=== PATIENT | female | born 1980 | race Caucasian/White ===

== ENCOUNTER 2016-11-08 18:29 | Emergency (ER) | payer BC ==
[~2016-11-08] VITALS: Ht 162.6 cm; Wt 61.7 kg
[~2016-11-08 18:29] MED LIST: PREN1TAB29 PO; VENL225T27 PO
[2016-11-08 18:32] VITALS: Ht 162.6 cm; Wt 61.7 kg
--- NOTE | 2016-11-08 19:22 | DIAGNOSTIC IMAGING REPORT ---
CHEST ONE VIEW PORTABLE CLINICAL HISTORY: Severe hypertension. COMPARISON STUDY: Chest radiograph and chest CT November 01, 2014. FINDINGS: Lung volumes are normal. There is no pneumothorax or pleural effusion. Cardiac size is normal. Mediastinal contours are normal. There is no evidence of pulmonary edema. IMPRESSION: No acute cardiopulmonary findings. Electronically signed by: Franki Chiang M.D. 11/08/2016 7:21 PM Dictated Date/Time: 11/08/2016 7:20 PM
[2016-11-08 19:37] LABS: COMPLETE YES; EOS % 0.2 %; HEMATOCRIT 39.1 % (37-47); LYMPH % 42.2 %; LYMPH ABS # 2.74 K/uL (1.2-3.4); MEAN CORPUSCULAR HEMOGLOBIN 28.9 pg (25-34); MEAN CORPUSCULAR HGB CONC 34.8 g/dl (32-36); MEAN PLATELET VOLUME 9.4 fL (7.4-10.4); MONO % 11.1 %; NEUT % 46.5 %; PLATELET COUNT 249 K/uL (130-400); RED BLOOD COUNT 4.71 M/uL (4.2-5.4); WHITE BLOOD COUNT 6.49 K/uL (4.8-10.8)
[2016-11-08 19:45] LABS: URINE APPEARANCE CLEAR (CLEAR); URINE BILIRUBIN NEG (NEG); URINE COLOR YELLOW; URINE NITRITE NEG (NEG); URINE SPECIFIC GRAVITY 1.006 (1.000-1.030); UROBILINOGEN NEG (NEG)
[2016-11-08 19:46] LABS: INR 0.9 (0.9-1.1); MANUAL MICROSCOPIC REQUIRED? NO; REVIEW REQ? NO
--- NOTE | 2016-11-08 19:52 | DIAGNOSTIC IMAGING REPORT ---
CT OF THE HEAD WITHOUT CONTRAST CLINICAL HISTORY: Severe hypertension. COMPARISON STUDY: No previous studies for comparison. CT DOSE: 537.48 mGy.cm TECHNIQUE: Helical axial images of the head were obtained without IV contrast. Automated exposure control was utilized for the study. FINDINGS: No acute intracranial hemorrhage, midline shift or mass effect is present. Brain volume is normal. Ventricular system is normal. Basilar cisterns are patent. No extra-axial collections are present. Bradley-white differentiation is maintained. There are no findings to suggest acute dural sinus thrombosis or acute territorial infarct. There are no significant calvarial abnormalities. IMPRESSION: No acute intracranial findings. Electronically signed by: Franki Chiang M.D. 11/08/2016 7:50 PM Dictated Date/Time: 11/08/2016 7:47 PM
[2016-11-08 20:02] LABS: BLOOD UREA NITROGEN 15 mg/dl (7-18); CREATININE 0.84 mg/dl (0.60-1.20); GLUCOSE 90 mg/dl (70-99)
[2016-11-08 20:03] LABS: ALT/SGPT 16 U/L (12-78); BUN/CREATININE RATIO 18.1 (10-20); CALCIUM 8.5 mg/dl (8.5-10.1); CARBON DIOXIDE 29 mmol/L (21-32); CHLORIDE 105 mmol/L (98-107); POTASSIUM 3.4 mmol/L (3.5-5.1); SODIUM 141 mmol/L (136-145)
[2016-11-08 20:13] LABS: ALKALINE PHOSPHATASE 75 U/L (45-117); AST/SGOT 15 U/L (15-37)
[2016-11-08] MEDS ORDERED: ACETAMINOPHEN 500 MG TAB PO STA (20:48)
[2016-11-08 21:13] VITALS: BP 162/109; PULSE 74; TEMP 37.2; O2SAT 99
--- NOTE | 2016-11-09 00:48 | EMERGENCY ROOM VISIT NOTE ---
History Report prepared by [place]: Champ Hansen Under the Supervision of: Dr. Paramjit Payne M.D. First contact with patient: 18:46 Chief Complaint: HYPERTENSION Stated Complaint: HIGH BP, HEADACHE, TINGLING FEELING- REFERRED KATARINA History of Present Illness The patient is a 36 year old female who presents to the Emergency Room with complaints of a persistent headache that began one day prior to arrival. The patient states that her headache was much more severe yesterday. She also notes some blurry vision yesterday that would only last for a few seconds. The patient is also concerned over some "tinging" sensations in her lips, face, and intermittently in her arms bilaterally. The patient states that she has experienced these symptoms before, but only when she misses a dose or two of her Effexor. She has experienced these tingling sensations for the past two days , but denies missing any recent dosages of her medications. Patient denies LOC, fevers, chills, diaphoresis, visual changes, neck pain, chest pain, breathing difficulties, nausea, vomiting, abdominal pain, back pain, melena, hematochezia , urinary symptoms, numbness, weakness, lymphadenopathy, rash, or other complaints. Source of History: patient Onset: One day [employer] Position: head Timing: other (Persistent) Associated Symptoms: No chills, No fevers Note: Tingling in lips, face, arms. Vision irregularities. Review of Systems See HPI for pertinent positives and negatives. A total of ten systems were reviewed and were otherwise negative. Past Medical & Surgical Medical Problems: (1) Dyspnea (2) Gestational hypertension w/o significant proteinuria in 3rd trimester (3) Mild preeclampsia (4) Nausea/vomiting in (5) Family History Cancer Diabetes mellitus Hypertension Social History Smoking Status: Never Smoker Alcohol Use: none Drug Use: none Marital Status: Housing Status: lives with family Occupation Status: employed Current/Historical Medications Scheduled Vit W/ Ferrous Fumara (), 1 TAB PO DAILY Venlafaxine Hcl (Venlafaxine Hcl Er), 125 MG PO DAILY Allergies Coded Allergies: No Known Allergies (Unverified , 11/08/16) Physical Exam Vital Signs Date Time Temp Pulse Resp B/P Pulse Ox O2 Delivery O2 Flow Rate FiO2 11/08/16 21:13 37.2 74 18 162/109 99 11/08/16 20:43 74 162/109 11/08/16 19:27 72 18 145/111 11/08/16 19:23 72 11/08/16 19:15 Room Air 11/08/16 19:15 Room Air 11/08/16 18:32 37.2 83 17 157/111 99 Room Air Physical Exam GENERAL: Awake, alert, well-appearing, in no distress HENT: Normocephalic, atraumatic. Oropharynx unremarkable. EYES: Normal conjunctiva. Sclera non-icteric.PEARRL NECK: Supple. No nuchal rigidity. FROM. No JVD. RESPIRATORY: Clear to auscultation. CARDIAC: Regular rate, normal rhythm. Extremities warm and well perfused. Pulses equal. ABDOMEN: Soft, non-distended. No tenderness to palpation. No rebound or guarding. No masses. RECTAL: Deferred. MUSCULOSKELETAL: Chest examination reveals no tenderness. The back is symmetrical on inspection without obvious abnormality. There is no CVA tenderness to palpation. No joint edema. LOWER EXTREMITIES: Calves are equal size bilaterally and non-tender. No edema. No discoloration. NEURO: Cranial nerves intact. Normal sensorium. No sensory or motor deficits noted. SKIN: No rash or jaundice noted. Medical Decision & Procedures ER Provider Diagnostic Interpretation: X ray results as stated below per my interpretation and radiologist interpretation. Other radiology results as stated below per my review and radiologist interpretation CHEST ONE VIEW PORTABLE CLINICAL HISTORY: Severe hypertension. COMPARISON STUDY: Chest radiograph and chest CT November 01, 2014. FINDINGS: Lung volumes are normal. There is no pneumothorax or pleural effusion. Cardiac size is normal. Mediastinal contours are normal. There is no evidence of pulmonary edema. IMPRESSION: No acute cardiopulmonary findings. Electronically signed by: Franki Chiang M.D. 11/08/2016 7:21 PM Dictated Date/Time: 11/08/2016 7:[address] OF THE HEAD WITHOUT CONTRAST CLINICAL HISTORY: Severe hypertension. COMPARISON STUDY: No previous studies for comparison. CT DOSE: 537.48 mGy.cm TECHNIQUE: Helical axial images of the head were obtained without IV contrast. Automated exposure control was utilized for the study. FINDINGS: No acute intracranial hemorrhage, midline shift or mass effect is present. Brain volume is normal. Ventricular system is normal. Basilar cisterns are patent. No extra-axial collections are present. Bradley-white differentiation is maintained. There are no findings to suggest acute dural sinus thrombosis or acute territorial infarct. There are no significant calvarial abnormalities. IMPRESSION: No acute intracranial findings. Electronically signed by: Franki Chiang M.D. 11/08/2016 7:50 PM Dictated Date/Time: 11/08/2016 7:47 PM Laboratory Results 11/08/16 19:20 Red Blood Count 4.71, Mean Corpuscular Volume 83.0, Mean Corpuscular Hemoglobin 28.9, Mean Corpuscular Hemoglobin Concent 34.8, Mean Platelet Volume 9.4, Neutrophils (%) (Auto) 46.5, Lymphocytes (%) (Auto) 42.2, Monocytes (%) (Auto) 11.1, Eosinophils (%) (Auto) 0.2, Basophils (%) (Auto) 0.0, Neutrophils # (Auto ) 3.02, Lymphocytes # (Auto) 2.74, Monocytes # (Auto) 0.72, Eosinophils # (Auto ) 0.01, Basophils # (Auto) 0.00 11/08/16 19:20 Test 11/08/16 19:20 White Blood Count 6.49 K/uL (4.8-10.8) Red Blood Count 4.71 M/uL (4.2-5.4) Hemoglobin 13.6 g/dL (12.0-16.0) Hematocrit 39.1 % (37-47) Mean Corpuscular Volume 83.0 fL (80-100) Mean Corpuscular Hemoglobin 28.9 pg (25-34) Mean Corpuscular Hemoglobin Concent 34.8 g/dl (32-36) Platelet Count 249 K/uL (130-400) Mean Platelet Volume 9.4 fL (7.4-10.4) Neutrophils (%) (Auto) 46.5 % Lymphocytes (%) (Auto) 42.2 % Monocytes (%) (Auto) 11.1 % Eosinophils (%) (Auto) 0.2 % Basophils (%) (Auto) 0.0 % Neutrophils # (Auto) 3.02 K/uL (1.4-6.5) Lymphocytes # (Auto) 2.74 K/uL (1.2-3.4) Monocytes # (Auto) 0.72 K/uL (0.11-0.59) Eosinophils # (Auto) 0.01 K/uL (0-0.5) Basophils # (Auto) 0.00 K/uL (0-0.2) RDW Standard Deviation 37.5 fL (36.4-46.3) RDW Coefficient of Variation 12.4 % (11.5-14.5) Immature Granulocyte % (Auto) 0.0 % Immature Granulocyte # (Auto) 0.00 K/uL (0.00-0.02) Prothrombin Time 10.0 SECONDS (9.0-12.0) Prothromb Time International Ratio 0.9 (0.9-1.1) Activated Partial Thromboplast Time 27.0 SECONDS (21.0-31.0) Partial Thromboplastin Ratio 1.0 Urine Color YELLOW Urine Appearance CLEAR (CLEAR) Urine pH 6.0 (4.5-7.5) Urine Specific Centre 1.006 (1.000-1.030) Urine Protein NEG (NEG) Urine Glucose (UA) NEG (NEG) Urine Ketones NEG (NEG) Urine Occult Blood 2+ (NEG) Urine Nitrite NEG (NEG) Urine Bilirubin NEG (NEG) Urine Urobilinogen NEG (NEG) Urine Leukocyte Esterase NEG (NEG) Urine WBC (Auto) 1-5 /hpf (0-5) Urine RBC (Auto) 0-4 /hpf (0-4) Urine Hyaline Casts (Auto) 0 /lpf (0-5) Urine Epithelial Cells (Auto) 10-20 /lpf (0-5) Urine Bacteria (Auto) NEG (NEG) Urine Test NEG (NEG) Anion Gap 7.0 mmol/L (3-11) Est Creatinine Clear Calc Drug Dose 78.5 ml/min Estimated GFR () 102.2 Estimated GFR (Non- 88.2 BUN/Creatinine Ratio 18.1 (10-20) Calcium Level 8.5 mg/dl (8.5-10.1) Total Bilirubin 0.2 mg/dl (0.2-1) Direct Bilirubin < 0.1 mg/dl (0-0.2) Aspartate Amino Transf (AST/SGOT) 15 U/L (15-37) Alanine Aminotransferase (ALT/SGPT) 16 U/L (12-78) Alkaline Phosphatase 75 U/L (45-117) Troponin I < 0.015 ng/ml (0-0.045) Total Protein 7.5 gm/dl (6.4-8.2) Albumin 3.6 gm/dl (3.4-5.0) Lipase 197 U/L (73-393) Thyroid Stimulating Hormone (TSH) 1.940 uIu/ml (0.300-4.500) Laboratory results reviewed by me Medications Administered Medications (Trade) Dose Ordered Sig/Keesha Route Start Time Stop Time Status Last Admin Dose Admin Acetaminophen (Tylenol Tab) 1,000 mg NOW STAT PO 11/08/16 20:48 11/08/16 20:50 DC 11/08/16 21:11 1,000 MG ECG Indication: other (numbness) Rate (beats per minute): 71 Rhythm: normal sinus Findings: no acute ischemic change, no ectopy ED Course 1853: The patient was evaluated in room C11. A complete history and physical exam was performed. 2038: I reevaluate the patient at this time, she is feeling well after her dosage of Tylenol. She does not want blood pressure medication at this time. She will follow up in her primary care clinic tomorrow. She will be discharged home. 2047: Ordered Tylenol 1000 mg PO. Medical Decision Prior records/ancillary studies reviewed regarding the history above. The patient has had similar blood pressure elevations prior to and during her delivery. Triage Nursing notes reviewed and agree them. The patient's history was concerning for hypertension. Differential diagnosis: Etiologies such as hypertensive urgency, hypertensive emergency, benign hypertension, cardiovascular pathology, pheochromocytoma, electrolyte abnormality, renal disease, endorgan damage, as well as others were entertained. Physical examination: As above. Nonfocal. ER treatment provided: Tylenol On reassessment the patient felt better. Diagnostic interpretation by me: The electrocardiogram was negative for pathologic change. The labs revealed an unremarkable CBC and chemistry panel. Urinalysis had LFTs unremarkable. Cardiac troponin negative. Imaging studies: Head CT and Chest x-ray as above. The patient has elevated blood pressure. She notes having tingling sensations in the past while being on Effexor. She has a nonfocal examination. Her blood pressures are elevated but not in the range to expect her to be experiencing these symptoms from. Clinically she looks well although is mildly anxious. She does not want to start blood pressure medication at that time and given the fact that she is asymptomatic at this moment I think that close outpatient follow-up is very reasonable. If she has any worsening symptoms or other problems develop she will come back to the emergency department. She will contact her primary physician's office tomorrow. By the evaluation outlined above emergent etiologies such as hypertensive emergency, pheochromocytoma, endorgan damage, cardiac ischemia, aortic dissection, pulmonary embolism, pneumonia, pneumothorax, infections, gastrointestinal, as well as others were deemed relatively unlikely. The patient informed about the findings as listed above. All questions were answered and she was pleased with the treatment. Return instructions were outlined and the patient was discharged in stable condition. Outpatient prescription management: none Referral: The patient was referred back to her primary care physician for follow-up for a recheck of the current condition. The chart was completed utilizing [employer] Speech voice recognition software. Grammatical errors, random word insertions, pronoun errors, and incomplete sentences are an occasional consequence of this system due to software limitations, ambient noise, and hardware issues. Any formal questions or concerns about the content, text, or information contained within the body of this dictation should be directly addressed to the physician for clarification. Impression Primary Impression: Hypertension Additional Impressions: Numbness Anxiety Scribe Attestation The scribe's documentation has been prepared under my direction and personally reviewed by me in its entirety. I confirm that the note above accurately reflects all work, treatment, procedures, and medical decision making performed by me. Departure Information Dispostion Home / Self-Care Referrals Laury Roblero, C.R.N.P. (PCP) Forms HOME CARE DOCUMENTATION FORM, IMPORTANT VISIT INFORMATION, WORK / SCHOOL INSTRUCTIONS Patient Instructions My [facility] Additional Instructions Follow-up with your primary clinic tomorrow to discuss your high blood pressure and symptoms. Discuss your use of the Effexor as this can affect your blood pressure. Tylenol: Take 1000 mg every 6 hours as needed for pain. Do not take more than 3000 mg in a 24 hour period. Return to the ER for headache, passing out, difficulty breathing, fevers, numbness, tingling, worsening of your condition, or as needed. Problem Qualifiers
== END 2016-11-08 21:18 | disposition home or self-care (01) ==
LOC: C.EDB 18:30 → C.EDC 21:18
DX: I10 Essential (primary) hypertension (principal); R20.0 Anesthesia of skin; F41.9 Anxiety disorder, unspecified; Z80.9 Family history of malignant neoplasm, unspecified; Z83.3 Family history of diabetes mellitus; Z82.49 Family history of ischemic heart disease and other diseases of the circulatory system

== ENCOUNTER → 2016-11-11 | Outpatient (CLI) | payer BC | END | disposition home or self-care (01) | LOC: C.PAPS 10:05 | PROVIDERS: ATTEND Physician Assistant | DX: Z01.419 Encounter for gynecological examination (general) (routine) without abnormal findings (principal); R87.615 Unsatisfactory cytologic smear of cervix ==

== ENCOUNTER → 2017-03-24 | Outpatient (CLI) | payer BC ==
--- NOTE | 2017-03-24 17:35 | DIAGNOSTIC IMAGING REPORT ---
RIGHT KNEE 1 OR 2 VIEWS ROUTINE HISTORY: 36 years-old Female M25.561 Knee pain, acute right-sided knee pain without trauma. COMPARISON: None available TECHNIQUE: Frontal and lateral views of the right knee FINDINGS: There is no acute fracture, dislocation, significant degenerative changes, intra-articular or radiopaque foreign body. There is a small joint effusion. There is minimal spurring of the superior pole patella. IMPRESSION: Small joint effusion without acute osseous abnormality or significant degenerative changes. The above report was generated using voice recognition software. It may contain grammatical, syntax or spelling errors. Electronically signed by: Walker Rossi M.D. 03/24/2017 5:34 PM Dictated Date/Time: 03/24/2017 5:33 PM
== END | disposition home or self-care (01) ==
LOC: C.RAD 17:22
PROVIDERS: ATTEND Physician Assistant Medical
DX: M25.561 Pain in right knee (principal); M25.461 Effusion, right knee

== ENCOUNTER → 2017-03-31 | Outpatient (CLI) | payer BC | END | disposition home or self-care (01) | LOC: C.PAPS 17:01 | PROVIDERS: ATTEND Obstetrics & Gynecology | DX: Z01.419 Encounter for gynecological examination (general) (routine) without abnormal findings (principal) ==

== ENCOUNTER → 2017-09-29 | Outpatient (CLI) | payer OTHER ==
[2017-09-29 13:20] LABS: FOLLICLE STIMULAT HORMONE 5.15 IU/L; LUTEINIZING HORMONE 5.62 IU/L
== END | disposition home or self-care (01) ==
LOC: C.LAB1850 12:10
PROVIDERS: ATTEND Specialist
DX: Z31.41 Encounter for fertility testing (principal)

== ENCOUNTER → 2017-10-07 | Outpatient (CLI) | payer OTHER ==
--- NOTE | 2017-10-07 10:10 | DIAGNOSTIC IMAGING REPORT ---
HYSTEROSALPINGOGRAM CLINICAL HISTORY: FALLOPIAN INSUFFLATION FOR FERTILITY TESTING Z31.41 COMPARISON STUDY: No previous studies for comparison. FINDINGS: 36 seconds of fluoroscopic time was utilized. 5 fluoroscopic spot images were obtained. The left fallopian tube filled in a normal fashion there was free spillage. There is a filling defect at the ostium of the right fallopian tube. The right fallopian tube was nonvisualized. IMPRESSION: 1. Free spillage on the left 2. Nonvisualization of the right fallopian tube Electronically signed by: Lenard Deluna M.D. 10/07/2017 10:09 AM Dictated Date/Time: 10/07/2017 10:06 AM
--- NOTE | 2017-10-07 11:00 | OPERATIVE REPORT ---
DATE OF OPERATION: 10/07/2017 PREPROCEDURE DIAGNOSIS: Infertility testing. POSTPROCEDURE DIAGNOSES: Same plus filling defect of right fallopian tube. INDICATIONS FOR PROCEDURE: The patient is a 37-year-old G4, P1-0-3-1, who is undergoing fertility workup with Vel Pompa, who was recommended to have a hystersalpingogram as part of her fertility workup. PROCEDURE: Hystersalpingogram. COMPLICATIONS: None. ESTIMATED BLOOD LOSS: Zero. FINDINGS: Free spillage of radiopaque dye from left fallopian tube. No visible spillage or visible right fallopian tube. Normal appearing uterine contour. DESCRIPTION OF PROCEDURE: The patient was seen in the x-ray department. All questions were answered. She has already started preprocedure doxycycline antibiotic prophylaxis. She was then positioned comfortably on the table in the dorsal lithotomy position. A speculum was placed. The cervix was visualized. It was swabbed with Betadine. The anterior aspect of the cervix was grasped with a single tooth tenaculum and the acorn uterine manipulator was placed into the cervix. Under fluoroscopic visualization, the radiopaque dye was injected through the cervix into the uterus and the above noted findings were seen. All instruments were then removed from the vagina. Excellent hemostasis was observed. The patient tolerated the procedure well. Postprocedure, I discussed the findings with the patient of a visibly patent left fallopian tube and no visible right fallopian tube or spillage from the right side. She will follow up with Vel Pompa for further planning and management. I attest to the content of the Intraoperative Record and any orders documented therein. Any exception s are noted below.
== END | disposition home or self-care (01) ==
LOC: C.RAD 09:20
PROVIDERS: ATTEND Obstetrics & Gynecology
DX: Z31.41 Encounter for fertility testing (principal)

== ENCOUNTER → 2017-10-07 | Outpatient (CLI) | payer OTHER ==
[2017-10-07 10:00] LABS: HEMATOCRIT 39.4 % (37-47); HEMOGLOBIN 13.9 g/dL (12.0-16.0); MEAN CELL VOLUME 87.6 fL (80-100); MEAN CORPUSCULAR HEMOGLOBIN 30.9 pg (25-34); MEAN CORPUSCULAR HGB CONC 35.3 g/dl (32-36); MEAN PLATELET VOLUME 10.1 fL (7.4-10.4); PLATELET COUNT 240 K/uL (130-400); RED CELL DISTRIBUTION WIDTH CV 12.1 % (11.5-14.5); RED CELL DISTRIBUTION WIDTH SD 38.7 fL (36.4-46.3); WHITE BLOOD COUNT 4.39 K/uL (4.8-10.8)
[2017-10-07 10:18] LABS: ALBUMIN 3.9 gm/dl (3.4-5.0); ALT/SGPT 20 U/L (12-78); BLOOD UREA NITROGEN 12 mg/dl (7-18); GLUCOSE 74 mg/dl (70-99)
[2017-10-07 10:21] LABS: ALKALINE PHOSPHATASE 54 U/L (45-117); AST/SGOT 16 U/L (15-37); TOTAL PROTEIN 7.3 gm/dl (6.4-8.2)
[2017-10-07 10:27] LABS: PROLACTIN 4.32 ng/mL
[2017-10-07 11:06] LABS: HEP C IGG 13 YRS+OLDER_RFLX NEG (NEG)
[2017-10-07 12:13] LABS: HEMOGLOBIN A1C 4.8 % (4.5-5.6)
[2017-10-12 02:16] LABS: ANTICARDIOLIPID AB IGA <11 APL (< = 11); TESTOSTERONE,TOTAL 38 ng/dL (2-45)
== END | disposition home or self-care (01) ==
LOC: C.LAB1850 08:31
PROVIDERS: ATTEND Specialist
DX: Z31.41 Encounter for fertility testing (principal); Z01.83 Encounter for blood typing; Z11.59 Encounter for screening for other viral diseases; E28.2 Polycystic ovarian syndrome; Z13.21 Encounter for screening for nutritional disorder; Z11.3 Encounter for screening for infections with a predominantly sexual mode of transmission; Z11.4 Encounter for screening for human immunodeficiency virus [HIV]

== ENCOUNTER → 2017-10-27 | Outpatient (CLI) | payer OTHER | END | disposition home or self-care (01) | LOC: C.LAB1850 16:21 | PROVIDERS: ATTEND Nurse Practitioner | DX: R39.9 Unspecified symptoms and signs involving the genitourinary system (principal) ==

== ENCOUNTER → 2017-11-02 | Outpatient (CLI) | payer OTHER ==
[2017-11-02 10:13] LABS: BASO % 0.5 %; BASO ABS # 0.03 K/uL (0-0.2); EOS % 6.5 %; EOS ABS # 0.41 K/uL (0-0.5); HEMATOCRIT 39.7 % (37-47); HEMOGLOBIN 13.8 g/dL (12.0-16.0); IG# 0.01 K/uL (0.00-0.02); LYMPH % 34.7 %; LYMPH ABS # 2.18 K/uL (1.2-3.4); MEAN CELL VOLUME 87.8 fL (80-100); MEAN CORPUSCULAR HEMOGLOBIN 30.5 pg (25-34); MEAN CORPUSCULAR HGB CONC 34.8 g/dl (32-36); MEAN PLATELET VOLUME 9.9 fL (7.4-10.4); MONO % 11.9 %; MONO ABS # 0.75 K/uL (0.11-0.59); NEUT % 46.2 %; NEUT ABS # 2.91 K/uL (1.4-6.5); PLATELET COUNT 236 K/uL (130-400); RED CELL DISTRIBUTION WIDTH CV 12.1 % (11.5-14.5); RED CELL DISTRIBUTION WIDTH SD 38.9 fL (36.4-46.3); WHITE BLOOD COUNT 6.29 K/uL (4.8-10.8)
== END | disposition home or self-care (01) ==
LOC: C.LAB1850 09:07
PROVIDERS: ATTEND Specialist
DX: Z13.0 Encounter for screening for diseases of the blood and blood-forming organs and certain disorders involving the immune mechanism (principal)

== ENCOUNTER → 2017-11-09 | Outpatient (CLI) | payer OTHER ==
--- NOTE | 2017-11-09 09:20 | DIAGNOSTIC IMAGING REPORT ---
KUB CLINICAL HISTORY: Dysuria. FINDINGS: 2 AP supine abdominal radiographs are correlated with abdominal ultrasound dated 11/11/2014. There is a nonobstructed abdominal bowel gas pattern. No evidence of intraperitoneal free air is seen. There is no radiographic evidence of nephrolithiasis. Phleboliths are identified in the pelvis. The bony structures appear intact. IMPRESSION: There is no radiographic evidence of nephrolithiasis. Electronically signed by: Óscar Patel M.D. 11/09/2017 9:18 AM Dictated Date/Time: 11/09/2017 9:18 AM
== END | disposition home or self-care (01) ==
LOC: C.RAD1850 09:02
PROVIDERS: ATTEND Nurse Practitioner
DX: R39.9 Unspecified symptoms and signs involving the genitourinary system (principal)

== ENCOUNTER → 2017-11-12 | Outpatient (CLI) | payer OTHER ==
--- NOTE | 2017-11-12 14:26 | DIAGNOSTIC IMAGING REPORT ---
(RENAL)RETROPERITON COMP HISTORY: Pain R39.9 Urinary symptom or signu/s bladder with post void residual COMPARISON: None. FINDINGS: Right kidney: Maximum dimension 11.2 cm. No evidence for hydronephrosis. Normal corticomedullary differentiation and cortical thickness. Left kidney: Maximum dimension 10.6 cm. No evidence for hydronephrosis. Normal corticomedullary differentiation and cortical thickness. Bladder: Prevoid bladder volume 530 cc. Postvoid 28 cc. IMPRESSION: 1. Normal renal ultrasound. 2. Prevoid bladder volume 530 cc. Postvoid 28 cc. The above report was generated using voice recognition software. It may contain grammatical, syntax or spelling errors. Electronically signed by: Erick Stephens M.D. 11/12/2017 2:25 PM Dictated Date/Time: 11/12/2017 2:23 PM
== END | disposition home or self-care (01) ==
LOC: C.ULTR 13:34
PROVIDERS: ATTEND Family Medicine Adult Medicine
DX: R39.9 Unspecified symptoms and signs involving the genitourinary system (principal)

== ENCOUNTER → 2017-12-09 | Outpatient (CLI) | payer OTHER | END | disposition home or self-care (01) | LOC: C.LABBFT 09:55 | PROVIDERS: ATTEND Physician Assistant Medical | DX: R39.9 Unspecified symptoms and signs involving the genitourinary system (principal) ==

== ENCOUNTER → 2018-01-06 | Outpatient (CLI) | payer OTHER | END | disposition home or self-care (01) | LOC: C.LABBFT 11:01 | PROVIDERS: ATTEND Specialist | DX: Z32.00 Encounter for pregnancy test, result unknown (principal) ==

== ENCOUNTER → 2018-03-29 | Outpatient (CLI) | payer OTHER | END | disposition home or self-care (01) | LOC: C.LAB1850 10:49 | PROVIDERS: ATTEND Obstetrics & Gynecology | DX: R39.15 Urgency of urination (principal) ==

== ENCOUNTER → 2018-03-31 | Outpatient (CLI) | payer OTHER | END | disposition home or self-care (01) | LOC: C.LAB1850 09:31 | PROVIDERS: ATTEND Obstetrics & Gynecology | DX: O09.522 Supervision of elderly multigravida, second trimester (principal) ==

== ENCOUNTER 2018-09-12 07:29 | Inpatient (IN) ==
[2018-09-12] MEDS ORDERED: LACTATED RINGER'S 1,000 ML IV PRN ×4 (08:19→17:27)
[2018-09-12] MEDS ORDERED: OXYTOCIN 30 UNITS/500 ML BAG IV PRN ×3 (08:19→08:25)
[2018-09-12] MEDS ORDERED: LACTATED RINGER'S 1,000 ML IV SCH (08:30)
--- NOTE | 2018-09-12 09:03 | History & Physical Report ---
Date of Service September 12, 2018 Assessment & Plan (1) Encounter for planned induction of labor: Kenya is a 38yo with YUNG by US of 09/12/2018 who presents for induction of labor. She has not had a lazaro balloon placed prior to admission. is complicated by AMA (age 38), otherwise uncomplicated. She is blood type B+, rubella immune, Ab-, VDRL/RPR nonreactive, Hep B negative, HIV-, GBS negative - Last office check 09/09: 2-3cm/60%/-2 - Type I heart tracing - Admit for induction of labor - IVFM LR 125cc/hr - Oxytocin protocol 1mL/hr (0.06 units/mL) with 2cc dose escalation protocol - Routine care (2) with maternal age 40 years or more in third trimester: History of Present Illness Chief Complaint: Kenya is a 38yo with YUNG by US of 09/12/2018 who presents for induction of labor. She has not had a lazaro balloon placed prior to admission. She has had no leakage of fluid, no vaginal bleeding. She has felt some occasional contractions, none with any sustained periodicity and lasting <a few minutes. She is still feeling the baby move/roll. is complicated by AMA (age 38), no other complications during this . She is blood type B+, rubella immune, Ab-, VDRL/RPR nonreactive, Hep B negative , HIV-, GBS negative. Declined MSAFP. Cell free DNA negative. She has had one prior delivered 3 weeks early by induction due to preeclampsia. Her delivery was uncomplicated. She briefly took metoprolol after her first , but stopped ~3 years ago well prior to her current . Her blood pressure has been normal since and had been under good control without antihypertensives this . She has a PMHx of asthmna, anxiety/depression and PCOS. She was diagnosed with PCOS based on difficulty conceiving, she had an ultrasound many years ago which she thinks was negative. She has never been treated with spironolactone. She has no history of diabetes of impaired glucose tolerance. Was treated with Effexor for anxiety during last . She did not have any post depression with her last . Effexor was discussed with her at 16 & 24 weeks, but she has not taken any doses during her current . She was last on it over one year ago. Feels she does well with therapy and it is effective for her. Vaccinations: She recieved TDaP, MMR, Influenza vaccinations Medcation: She takes aspirin 81mg daily, fish oil daily, and a vitamin daily. No other medications. SHx: [place] teeth removed, neck cyst removed. No hx of c/s. Social: No tobacco use, no alcohol use, no recreational drug use Allergies: NKDA. Some season allergies. Primary Care Provider: July Gurrola MD Allergies Allergy/AdvReac Type Severity Reaction Status Date / Time No Known Allergies Allergy Unverified 11/08/16 20:00 Home Medications Home Medications Medication Instructions Recorded Confirmed Type aspirin 81 mg PO DAILY 09/12/18 09/12/18 History vit-iron fum-folic ac 1 tab PO DAILY 09/12/18 09/12/18 History [ Vitamin] Patient History Medical History Asthma Depression with anxiety demise 09/19/2013 14.3 weeks requiring d and e, MaterniT 21- 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 Normal spontaneous vaginal delivery 01/28/15 37.3 weeks, female Polycystic ovarian disease Spontaneous 02/2014 6 weeks Spontaneous 04/24/2013 4 weeks [place] teeth removed age 17 Surgical History History of removal of neck cyst Family History Grandmother (Maternal) Colon cancer Grandfather (Maternal) Diabetes Grandfather (Maternal) Congestive heart failure Grandfather (Paternal) Congenital heart defect Heart attack High cholesterol Brother Hypertension Mother Hypertension Aunt Breast cancer Social History marital status: Current Living Situation: Family Feels Safe at Home: Yes Smoking Status: Never smoker Hx Alcohol Use: Yes Alcohol type: wine Alcohol Intake Frequency: holidays/ special occasions only Hx Substance Use: No Beliefs That Will Affect Care: None Preferred Language: Malay Communication Ability: Effective Review of Systems Constitutional: no fever, no chills, no sweats, no body aches and no weakness Eyes: no blind spots, no diplopia, no spots in vision and no worsening vision Ear, Nose, Mouth, Throat: no ear pain, no ear discharge, no dizziness, no nasal congestion, no nasal discharge, no sinus pain/pressure and no sore throat Respiratory: + cough (dry cough at night with dry air); no chest congestion, no dyspnea, no dyspnea on exertion, no pain with cough, no sputum production and no wheezing Cardiovascular: no chest pain, no chest pain at rest, no chest pain with activity, no dyspnea, no dyspnea at rest, no dyspnea on exertion, no palpitations, no lightheadedness, no syncope and no edema Gastrointestinal: no abdominal pain, no nausea, no vomiting, no change in bowel habits and no melena Genitourinary (Female): no dysuria, no difficulty urinating, no flank pain and no abnormal vaginal bleeding Musculoskeletal: no joint pain and no muscle weakness Integumentary: no rash, no lesions and no new lesions Neurologic: no generalized weakness, no loss of sensation, no tingling and no numbness Psychiatric: + anxiety (Endorses some anxiety with blood draw this AM, a little sad she has to be induced); no depression Physical Exam 2 Vital Signs (Past 24 Hours): Last Vital Signs Temp 36.7 C 09/12/18 08:19 Pulse 79 09/12/18 08:26 Resp 20 09/12/18 08:19 BP 119/81 09/12/18 08:26 Constitutional: well developed, well nourished, cooperative and comfortable; no acute distress, not ill appearing, not intoxicated appearing and no altered mental status Eyes: PERRL, conjunctivae normal, anicteric sclerae EOM intact bilaterally ENMT: external ear and nose normal, oropharynx normal Neck: trachea midline, no thyromegaly Respiratory: normal respiratory effort, lungs clear to auscultation Cardiovascular: Rate/Rhythm: regular rate and regular rhythm Heart Sounds: normal S1, normal S2 and + murmur (soft midsystolic murmur appreciated at ULSB) ; no gallop Gastrointestinal (Abdomen): normal bowel sounds, soft, nontender, no hepatosplenomegaly Inspection/Auscultation: + abdomen distended (distension consistent with ) Dilip's: Cephalic presentation, back to pt's right. Musculoskeletal: no cyanosis or clubbing, extremities motor strength 5/5 Skin: no rashes, warm and dry Neurologic: patellar DTR's 2+ bilat, sensation intact and PERRL, EOMI, accommodation nl, no face palsy, no dysarthria Psychiatric: Orientation: alert and oriented x 3 Apperance: appropriately dressed Eye Contact: good eye contact Speech: normal rate/rhythm/volume of speech Affect: euthymic affect Results & Data Laboratory Results 09/12/18 Range/Units 08:38 WBC 13.45 H (4.8-10.8) K/uL RBC 3.84 L (4.2-5.4) M/uL Hgb 11.9 L (12.0-16.0) g/dL Hct 34.5 L (37-47) % MCV 89.8 (80-100) fL MCH 31.0 (25-34) pg MCHC 34.5 (32-36) g/dL RDW Std Deviation 41.5 (36.4-46.3) fL RDW Coeff of Ajay 12.8 (11.5-14.5) % Plt Count 251 (130-400) K/uL MPV 9.1 (7.4-10.4) fL Medications Administered Current Inpatient Medications Oxytocin (Pitocin) 30 units in 500 mls @ 1 mls/hr IV .Q24H PRN; Protocol PRN Reason: Labor Induction/Augmentation Stop: 09/14/18 08:22 Last Admin: 09/12/18 09:09 Dose: 0.06 units/hr, 1 mls/hr Lactated Ringer's (Lr) 1,000 mls @ 999 mls/hr IV .Q1H1M PRN PRN Reason: Tachysystole Stop: 09/14/18 08:22 Lactated Ringer's (Lr) 1,000 mls @ 125 mls/hr IV .Q8H DIANA Stop: 09/14/18 08:29 Last Admin: 09/12/18 09:06 Dose: 125 mls/hr Lactated Ringer's (Lr) 1,000 mls @ 999 mls/hr IV .Q1H1M PRN PRN Reason: (Pre-Anesthesia) Stop: 10/12/18 08:24 Oxytocin (Pitocin) 30 units in 500 mls @ 333.333 mls/hr IV .Q1H30M PRN; Protocol PRN Reason: Bleeding Control Stop: 10/12/18 08:24 Code Status & VTE Plan Code Status Full Code Monitoring External Monitor FHR ~132bpm, moderate variability, accelerations present, no decelerations. Type I tracing. Tocodynamometer No regular contractions. Supervising Physician Co-Signing Physician Notes Resident Physician Supervision Note: I interviewed and examined the patient. Discussed with Dr. Nguyen and agree with findings and plan as documented in the note. Any exceptions or clarifications are listed here: [None] Documented By: Yanira German MD, FACOG Resident Activity Tracking Resident Involvement: Resident Care Provided Care Provided: Adult Hospital Medicine
[2018-09-12 09:06] LABS: Hematocrit (blood only) 34.5 % (37-47); Hemoglobin 11.9 g/dL (12.0-16.0); Mean Corpuscular Volume 89.8 fL (80-100); Mean Platelet Volume 9.1 fL (7.4-10.4); Platelet Count 251 K/uL (130-400); RDW Coefficient of Variation 12.8 % (11.5-14.5); RDW Standard Deviation 41.5 fL (36.4-46.3); Red Blood Count 3.84 M/uL (4.2-5.4); White Blood Count 13.45 K/uL (4.8-10.8)
[2018-09-12] MEDS: LACTATED RINGER'S 1,000 ML IV SCH ×4 (09:06→21:40)
[2018-09-12 09:19] LABS: Mean Corpuscular Hgb Conc 34.5 g/dL (32-36)
[2018-09-12] MEDS ORDERED: fentaNYL citrate 100 MCG/2 ML VIAL ONE (16:44)
[2018-09-12] MEDS ORDERED: BUPIVACAINE 0.25% 30 ML VIAL ONE (16:44)
[2018-09-12] MEDS ORDERED: ePHEDrine sulfate 50 MG/ML AMP ONE (16:44)
[2018-09-12] MEDS ORDERED: fentaNYL 2MCG/ML ROPIV 1.25MG/ML 100 ML BAG EPI ONE (16:45)
--- NOTE | 2018-09-12 17:05 | Anesthesiology Consultation ---
Date of Service September 12, 2018 Assessment & Plan (1) Encounter for pre-operative examination: Chart Review Chart Review: Acceptable Risk for Labor Epidural Consults Requested none ASA ASA2 Proposed Anesthesia Anesthesia Type: Labor Epidural Risk / Benefits Reviewed With: PT / POA / Parent / Guardian, Accepts Plan and Informed Consent Obtained History Height/Weight Height: 5 ft 4 in Weight: 72.575 kg Allergies Allergy/AdvReac Type Severity Reaction Status Date / Time No Known Allergies Allergy Unverified 11/08/16 20:00 Medications Home Medications Medication Instructions Recorded Confirmed Last Taken aspirin 81 mg PO DAILY 09/12/18 09/12/18 09/11/18 vit-iron fum-folic ac 1 tab PO DAILY 09/12/18 09/12/18 09/12/18 07:15 [ Vitamin] Active Medications Generic Name Dose Route Start Last Admin Trade Name Freq PRN Reason Stop Dose Admin Oxytocin 30 units in 500 mls @ 13 mls/hr 09/12/18 08:23 09/12/18 13:55 Pitocin IV 09/14/18 08:22 0.78 units/hr .Q24H PRN 13 mls/hr Labor Induction/Augmentation Titration Protocol 0.78 UNITS/HR Lactated Ringer's 1,000 mls @ 125 mls/hr 09/12/18 08:30 09/12/18 16:38 Lr IV 09/14/18 08:29 999 mls/hr .Q8H DIANA Infusion Past Medical History Medical History Asthma Depression with anxiety demise 09/19/2013 14.3 weeks requiring d and e, MaterniT 21- 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 Normal spontaneous vaginal delivery 01/28/15 37.3 weeks, female Polycystic ovarian disease Spontaneous 02/2014 6 weeks Spontaneous 04/24/2013 4 weeks [place] teeth removed age 17 Past Family History Family History Grandmother (Maternal) Colon cancer Grandfather (Maternal) Diabetes Grandfather (Maternal) Congestive heart failure Grandfather (Paternal) Congenital heart defect Heart attack High cholesterol Brother Hypertension Mother Hypertension Aunt Breast cancer Past Surgical History Surgical History History of removal of neck cyst Past Anesthesia History No Hx of Anesthesia Complications and No Family Hx of Anesthesia Complications History of PONV No Motion Sickness Screening History of Motion Sickness: No Social History Smoking Status: Never smoker Hx Alcohol Use: Yes Alcohol type: wine alcohol intake frequency: holidays/special occasions only Alcohol Intake Frequency Comment: small amount Hx Substance Use: No Exercise / Class Metabolic Activity II 4-5 Yardwork/Stairs/Walk up hill Physical Exam Vital Signs Last Vital Signs Temp 98.2 F 09/12/18 15:00 Pulse 69 09/12/18 15:04 Resp 20 09/12/18 16:30 BP 129/88 09/12/18 15:04 ENMT Mouth: no dentition abnormality Thyromental Distance: > or= 3.5 Finger Breadths Mallampati Class: II Neck normal visual inspection Respiratory normal respiratory effort Auscultation: lungs clear to auscultation bilaterally Cardiovascular Rate/Rhythm: regular rate and regular rhythm Testing Laboratory Results 09/12/18 08:38
[2018-09-12] MEDS ORDERED: NALOXONE HCL 0.4 MG/1 ML VIAL/CARP IV PRN (17:27)
[2018-09-12] MEDS ORDERED: ONDANSETRON INJ 2 MG/ML 2 ML VIAL IV PRN (17:27)
[2018-09-12] MEDS ORDERED: fentaNYL 2MCG/ML ROPIV 1.25MG/ML 100 ML BAG EPI PRN (17:27)
[2018-09-12] MEDS ORDERED: NALBUPHINE HCL INJ 10 MG/ML AMP IV PRN (17:27)
[2018-09-12] MEDS ORDERED: ePHEDrine sulfate 50 MG/ML AMP IV PRN (17:27)
[2018-09-12] MEDS ORDERED: DiphenhydrAMINE HCL 50 MG/ML VIAL IV PRN (17:27)
[2018-09-12] MEDS ORDERED: NALOXONE HCL 1 MG in SODIUM CHLORIDE 0.9% 1000ML 1,000 ML IV PRN (17:27)
[2018-09-12] MEDS ORDERED: ONDANSETRON INJ 2 MG/ML 2 ML VIAL ONE (17:41)
[2018-09-12] MEDS ORDERED: CALCIUM CARBONATE 500 MG CHEWABLE TAB PO PRN (20:31)
--- NOTE | 2018-09-13 03:27 | Delivery Summary ---
DATE OF OPERATION: 09/13/2018 The patient is a 38-year-old 2, para 1-0-0-1 white female, EDC of 09/12/2018 who presented on her due date for induction of labor because of advanced maternal age. She received Pitocin for induction of labor. Membranes were ruptured for clear fluid. She progressed to full dilation and pushed effectively over intact perineum for delivery of a viable male . There was a loose nuchal cord x2, which was reduced prior to delivering the rest of the infant. The right hand was presenting posteriorly and after the anterior shoulder was delivered, the right arm was delivered posteriorly and the rest of the delivered easily and was placed on the mother's abdomen for further attention and drying. The infant was vigorous & crying. The cord was clamped and cut after approximately 30 seconds. After cord blood donation was obtained, the placenta was expressed intact with a 3-vessel cord. There was a superficial right labial laceration present that was not bleeding. It was not repaired. The estimated blood loss was 400 mL. Mother and infant were doing well after delivery. I attest to the content of the Intraoperative Record and any orders documented therein. Any exceptions are noted below. MTDD
[2018-09-13] MEDS ORDERED: METHYLERGONOVINE MALEATE 0.2 MG/ML AMP IM STA (03:29)
[2018-09-13] MEDS ORDERED: ACETAMINOPHEN 325 MG TAB PO PRN (05:16)
[2018-09-13] MEDS ORDERED: HYDROCORTISONE ACETATE 25 MG SUPP PR PRN (05:16)
[2018-09-13] MEDS ORDERED: SUPERCREAM 0.870% 15 GM JAR EXT PRN (05:16)
[2018-09-13] MEDS ORDERED: BISACODYL 10 MG SUPP PR PRN (05:16)
[2018-09-13] MEDS ORDERED: BENZOCAINE 20% AER SPR 82.5 GM CAN EXT PRN (05:16)
[2018-09-13] MEDS ORDERED: OXYTOCIN 30 UNITS/500 ML BAG IV PRN (05:16)
[2018-09-13] MEDS ORDERED: OXYCODONE/ACETAMINOPHEN 5mg/325mg TAB PO PRN (05:16)
[2018-09-13] MEDS: IBUPROFEN 600 MG TAB PO PRN ×3 (06:40→19:53)
--- NOTE | 2018-09-13 07:08 | Anesthesia Procedure Note ---
Date of Service September 13, 2018 Anesthesia Post Epidural Note Vital Signs Vital Signs: Temp Pulse Pulse Resp BP BP Pulse Ox 09/13/18 03:40 37.1 C 84 16 117/77 98 09/13/18 03:31 78 128/83 09/13/18 03:21 82 108/70 09/13/18 03:20 37.1 C 18 09/13/18 03:11 74 120/74 09/13/18 03:05 18 09/13/18 03:01 87 117/77 09/13/18 02:51 83 113/77 09/13/18 02:41 76 126/87 09/13/18 02:35 18 09/13/18 02:31 84 117/82 09/13/18 02:21 83 117/80 09/13/18 02:11 80 123/83 09/13/18 02:05 18 09/13/18 02:01 84 126/85 09/13/18 01:51 91 H 136/87 09/13/18 01:50 18 09/13/18 01:41 81 119/82 09/13/18 01:35 18 09/13/18 01:33 80 133/82 09/13/18 01:22 106 H 196/84 H 09/13/18 01:20 36.9 C 18 09/13/18 00:58 99 H 145/89 H 09/13/18 00:52 102 H 98 09/13/18 00:47 100 H 96 09/13/18 00:42 90 98 09/13/18 00:41 92 H 86 L 09/13/18 00:37 88 99 09/13/18 00:36 96 H 110/79 09/13/18 00:34 81 110/64 09/13/18 00:32 110 H 78 L 09/13/18 00:27 100 H 98 09/13/18 00:22 94 H 99 09/13/18 00:20 88 122/75 09/13/18 00:17 94 H 99 09/13/18 00:12 80 98 09/13/18 00:07 78 98 09/13/18 00:04 80 113/63 09/13/18 00:02 80 98 09/12/18 23:57 78 98 09/12/18 23:52 79 98 09/12/18 23:49 79 110/63 01/28/19 23:47 77 98 09/12/18 23:42 75 98 09/12/18 23:37 82 98 09/12/18 23:34 83 118/63 09/12/18 23:32 82 98 09/12/18 23:27 94 H 99 09/12/18 23:22 84 97 09/12/18 23:19 82 111/71 09/12/18 23:17 83 98 09/12/18 23:12 85 97 09/12/18 23:08 87 93 09/12/18 23:07 36.7 C 86 18 96 09/12/18 23:04 90 117/77 09/12/18 23:02 93 H 98 09/12/18 23:00 22 09/12/18 22:57 85 100 09/12/18 22:52 99 H 99 09/12/18 22:50 107 H 147/91 H 09/12/18 22:47 110 H 96 09/12/18 22:42 85 98 09/12/18 22:37 85 98 09/12/18 22:34 99 H 136/87 09/12/18 22:32 83 98 09/12/18 22:30 20 09/12/18 22:27 82 97 09/12/18 22:22 82 97 09/12/18 22:20 90 137/87 09/12/18 22:17 84 97 09/12/18 22:12 79 98 09/12/18 22:07 84 98 09/12/18 22:04 86 135/83 09/12/18 22:02 78 97 09/12/18 22:00 37.1 C 20 09/12/18 21:57 81 97 09/12/18 21:52 85 99 09/12/18 21:49 89 138/87 09/12/18 21:47 80 97 09/12/18 21:42 96 H 98 09/12/18 21:37 87 100 09/12/18 21:32 87 98 09/12/18 21:30 36.7 C 20 09/12/18 21:27 80 98 09/12/18 21:22 79 98 09/12/18 21:19 78 124/78 09/12/18 21:17 79 99 09/12/18 21:12 86 99 09/12/18 21:07 77 98 09/12/18 21:04 80 126/74 09/12/18 21:02 79 98 09/12/18 21:00 20 09/12/18 20:57 78 99 09/12/18 20:52 77 98 09/12/18 20:49 76 126/74 09/12/18 20:47 87 98 09/12/18 20:42 76 99 09/12/18 20:37 72 98 09/12/18 20:35 82 129/77 09/12/18 20:32 83 99 09/12/18 20:30 20 09/12/18 20:27 84 99 09/12/18 20:22 73 99 09/12/18 20:21 73 136/90 09/12/18 20:17 81 98 09/12/18 20:12 88 99 09/12/18 20:07 82 97 09/12/18 20:04 89 143/95 H 09/12/18 20:02 77 97 09/12/18 20:00 20 09/12/18 19:57 78 98 09/12/18 19:52 87 130/87 99 09/12/18 19:51 84 83 L 09/12/18 19:50 84 139/95 09/12/18 19:47 86 100 09/12/18 19:42 89 99 09/12/18 19:37 83 99 09/12/18 19:35 77 123/90 09/12/18 19:32 82 100 09/12/18 19:30 20 09/12/18 19:27 82 100 09/12/18 19:22 79 100 09/12/18 19:20 81 121/81 09/12/18 19:17 79 100 09/12/18 19:12 74 98 09/12/18 19:07 82 98 09/12/18 19:04 75 118/71 09/12/18 19:02 74 99 09/12/18 19:00 36.7 C 20 09/12/18 18:57 74 99 09/12/18 18:52 74 99 09/12/18 18:49 75 118/78 09/12/18 18:47 80 98 09/12/18 18:42 81 99 09/12/18 18:37 80 98 09/12/18 18:34 78 131/83 09/12/18 18:32 92 H 99 09/12/18 18:30 20 09/12/18 18:27 81 99 09/12/18 18:22 82 99 09/12/18 18:19 77 124/80 09/12/18 18:17 85 97 09/12/18 18:12 76 98 09/12/18 18:07 79 98 09/12/18 18:04 76 123/75 09/12/18 18:02 74 98 09/12/18 18:00 20 09/12/18 17:57 69 97 09/12/18 17:52 71 98 09/12/18 17:47 71 99 09/12/18 17:46 74 114/68 09/12/18 17:44 75 111/64 09/12/18 17:42 74 112/62 98 09/12/18 17:40 71 112/64 09/12/18 17:38 78 125/64 09/12/18 17:37 72 99 09/12/18 17:36 72 120/65 09/12/18 17:34 74 110/70 09/12/18 17:32 74 117/69 99 09/12/18 17:30 74 20 110/63 09/12/18 17:27 74 98 09/12/18 17:26 76 118/67 09/12/18 17:24 69 117/67 09/12/18 17:22 76 126/75 100 09/12/18 17:20 68 136/84 09/12/18 17:18 65 134/81 09/12/18 17:17 68 100 09/12/18 17:12 79 100 09/12/18 17:07 68 100 09/12/18 17:05 85 93 09/12/18 17:03 74 153/91 H 09/12/18 17:02 75 100 09/12/18 17:00 36.4 C L 20 09/12/18 16:30 20 09/12/18 16:00 20 09/12/18 15:30 20 09/12/18 15:04 69 129/88 09/12/18 15:00 36.8 C 20 09/12/18 13:56 36.8 C 78 20 126/84 09/12/18 12:53 67 133/84 09/12/18 11:41 77 140/99 09/12/18 11:28 36.9 C 76 18 144/97 H 09/12/18 10:36 69 130/88 09/12/18 09:12 80 127/90 09/12/18 08:26 79 119/81 09/12/18 08:19 36.7 C 20 09/12/18 08:15 92 H 131/89 Pain Intensity Bilateral Lower Abdomen: Pain Intensity: 0 Notes Mental Status: alert / awake / arousable Patient Amnestic to Procedure: No Nausea / Vomiting: adequately controlled Pain: adequately controlled Airway Patency, RR, SpO2: stable & adequate BP & HR: stable & adequate Hydration State: stable & adequate Anesthetic Complications: no major complications apparent Epidural: Removed without complications and With tip intact Notes: Pt doing well. Epidural site looks clean/dry/intact without signs of edema or erythema.
--- NOTE | 2018-09-13 07:26 | Obstetrical Progress Note ---
Date of Service September 13, 2018 Assessment & Plan (1) Normal labor and delivery: satisfactory progress continue current care plan. Present on Admission?: No Subjective Had some extra bleeding following delivery, bleeding has now slowed after dilute pitocin & methergine. Not symptomatic now when she ambulates. Bresastfeeding going well. Review of Systems All systems reviewed & are unremarkable except as noted in HPI & below Physical Exam 2 Vital Signs (Past 24 Hours): Last Vital Signs Temp 37.1 C 09/13/18 03:40 Pulse 84 09/13/18 03:40 Resp 16 09/13/18 03:40 BP 117/77 09/13/18 03:40 Pulse Ox 98 09/13/18 03:40 Constitutional: WD/WN, vitals as above Genitourinary: Speculum/Bimanual Exam: + uterus enlarged (fundus at umbilicus & nontender) no calf tenderness
[2018-09-13 09:03] LABS: Hematocrit (blood only) 29.9 % (37-47); Hemoglobin 10.4 g/dL (12.0-16.0)
[2018-09-13] MEDS: DOCUSATE SODIUM 100 MG CAP PO SCH ×2 (09:03→20:53)
[2018-09-13] MEDS: PRENATAL VITAMIN 1 TAB PO SCH (09:03)
--- NOTE | 2018-09-14 06:23 | Obstetrical Progress Note ---
Date of Service <Arnel Nguyen MD - Last Filed: 09/14/18 06:23> September 14, 2018 Assessment & Plan <Arnel Nguyen MD - Last Filed: 09/14/18 06:23> (1) Normal labor and delivery: Kenya is a 38yo with YUNG by US of 09/12/2018 who presented for induction of labor. was complicated by AMA (age 38), otherwise uncomplicated. She is blood type B+, rubella immune, Ab-, VDRL/RPR nonreactive, Hep B negative, HIV-, GBS negative - Feels well today. Eating well, voiding well, ambulating well. - Pain well controlled with ibuprofen 600mg Q4H PRN. - well - Routine care - Anticipate discharge today to [address] Eckert. - Discharge counseling provided (2) with maternal age 40 years or more in third trimester: Subjective <Arnel Nguyen MD - Last Filed: 09/14/18 06:23> Ambulation: ambulating normally Voiding: no voiding problems Passing Gas:: Yes Diet Tolerance:: regular diet Lochia:: Moderate Feeding Type:: breast feeding Current Pain Level(1-10): 1 (improved with rx) Review of Systems Denies fever, chills, sweats Denies shortness of breath, difficulty breathing, chest pain, palpitations, chest pressure. Denies breast pain. Denies dysuria. Denies headache. Physical Exam <Arnel Nguyen MD - Last Filed: 09/14/18 06:23> Vital Signs (Past 24 Hours) Last Vital Signs Temp 36.8 C 09/14/18 00:30 Pulse 93 H 09/14/18 00:30 Resp 17 09/14/18 00:30 BP 121/78 09/14/18 00:30 Pulse Ox 98 09/13/18 15:35 General: Alert, oriented. No acute distress. Cardiac: Regular rate and rhythm, no murmurs/rubs/gallops. Respiratory: Clear to auscultation anterior and posteriorly, no wheezes/rales/ rhonchi. No increased work of breathing. Symmetrical chest rise. No respiratory distress. Abdomen: Soft, nontender, nondistended. Bowel sounds present. Uterus: Uterine fundus firm, palpable ~2cm below umbilicus. Lower Extremities: No lower extremity edema or swelling. No deep calf pain. Zachary's negative bilaterally. Results & Data <Arnel Nguyen MD - Last Filed: 09/14/18 06:23> Laboratory Results Abnormal lab results 09/13/18 Range/Units 08:53 Hgb 10.4 L (12.0-16.0) g/dL Hct 29.9 L (37-47) % Medications Administered Current Inpatient Medications Acetaminophen (Tylenol) 650 mg PO Q6H PRN PRN Reason: Pain/ADAIR/Fever Stop: 10/13/18 05:15 Last Admin: 09/13/18 09:27 Dose: 650 mg Benzocaine (Dermoplast Pain Relieving [place]) 1 appln EXT PRN PRN PRN Reason: Perineal Discomfort Stop: 10/13/18 05:15 Bisacodyl (Dulcolax) 5 mg PO 2000 [facility] Stop: 09/14/18 20:01 Bisacodyl (Dulcolax) 10 mg OR DAILY PRN PRN Reason: No BM on 2nd post- day Stop: 10/13/18 05:15 Calcium Carbonate (Tums) 1,000 mg PO Q6 PRN PRN Reason: Indigestion Stop: 10/12/18 20:30 Last Admin: 09/12/18 21:42 Dose: 1,000 mg Cocaine HCl (Supercream 0.870%) 1 gm EXT BID PRN PRN Reason: Hemorrhoidal Inflammation Stop: 09/27/18 05:15 Diphtheria/Pertussis/Tetanus Vacc (Adacel) 0.5 ml IM .ONCE ONE Stop: 09/14/18 09:01 Docusate Sodium (Colace) 100 mg PO BID [facility] Stop: 10/13/18 08:59 Last Admin: 09/13/18 20:53 Dose: 100 mg Hydrocortisone (Anusol Hc) 25 mg OR BID PRN PRN Reason: Hemorrhoidal Inflammation Stop: 10/13/18 05:15 Lactated Ringer's (Lr) 1,000 mls @ 999 mls/hr IV .Q1H1M PRN PRN Reason: Tachysystole Stop: 09/14/18 08:22 Lactated Ringer's (Lr) 1,000 mls @ 125 mls/hr IV .Q8H DIANA Stop: 09/14/18 08:29 Last Infusion: 09/13/18 01:35 Dose: 0 mls/hr Oxytocin (Pitocin) 30 units in 500 mls @ 333.333 mls/hr IV .Q1H30M PRN; Protocol PRN Reason: Bleeding Control Stop: 10/12/18 08:24 Last Admin: 09/13/18 01:55 Dose: 20 units/hr, 333.3 mls/hr Oxytocin (Pitocin) 30 units in 500 mls @ 333.333 mls/hr IV .Q1H30M PRN; Protocol PRN Reason: BLEEDING CONTROL Stop: 10/13/18 05:15 Ibuprofen (Motrin) 600 mg PO Q4H PRN PRN Reason: Pain/ADAIR/Cramping/Fever Stop: 10/13/18 05:15 Last Admin: 09/13/18 19:53 Dose: 600 mg Oxycodone/Acetaminophen (Percocet 5mg/325mg) 1 tab PO Q4H PRN PRN Reason: Pain not relieved by... Stop: 09/27/18 05:15 Prenat Multivit/[place]/Iron/Folic Ac ( Vitamin) 1 tab PO QAM DIANA Stop: 10/13/18 08:59 Last Admin: 09/13/18 09:03 Dose: 1 tab <Ludmila Marcus MD, FACOG - Last Filed: 09/14/18 06:50> Co-Signing Physician Notes Resident Physician Supervision Note: I was present with Dr. Corcoran during the history and exam. I discussed the case with the resident and agree with the findings and plan as documented in the note. Any exceptions or clarifications are listed here: doing well. ready for d/c. instructions had been reviewed. f/u 6wks pp. she does not have any ?s. ff 2 down. firm. Documented By: Ludmila Marcus MD, FACOG Resident Activity Tracking <Arnel Nguyen MD - Last Filed: 09/14/18 06:23> Resident Involvement: Resident Care Provided Care Provided: Adult Hospital Medicine
[2018-09-14] MEDS: IBUPROFEN 600 MG TAB PO PRN (06:51)
[2018-09-14 07:47] LABS: Hematocrit (blood only) 26.9 % (37-47); Hemoglobin 9.1 g/dL (12.0-16.0); Mean Corpuscular Hgb Conc 33.8 g/dL (32-36); Mean Corpuscular Volume 89.7 fL (80-100); Mean Platelet Volume 9.3 fL (7.4-10.4); Platelet Count 235 K/uL (130-400); RDW Coefficient of Variation 13.2 % (11.5-14.5); RDW Standard Deviation 42.3 fL (36.4-46.3); White Blood Count 19.61 K/uL (4.8-10.8)
[2018-09-14] MEDS ORDERED: DIPHTHERIA/TETANUS/PERTUSSIS 0.5 ML SYR/VIAL IM ONE (09:00)
[2018-09-14] MEDS: PRENATAL VITAMIN 1 TAB PO SCH (09:05)
[2018-09-14] MEDS: DOCUSATE SODIUM 100 MG CAP PO SCH ×2 (09:05→20:11)
[2018-09-14] MEDS ORDERED: BISACODYL 5 MG TABEC PO SCH (20:00)
[2018-09-15 06:24] LABS: Hemoglobin 8.7 g/dL (12.0-16.0)
--- NOTE | 2018-09-15 06:42 | Obstetrical Progress Note ---
Date of Service <Arnel Nguyen MD - Last Filed: 09/15/18 06:42> September 15, 2018 Assessment & Plan <Arnel Nguyen MD - Last Filed: 09/15/18 06:42> (1) Normal labor and delivery: [place] is a 38yo with YUNG by US of 09/12/2018 who presented for induction of labor. was complicated by AMA (age 38), otherwise uncomplicated. She is blood type B+, rubella immune, Ab-, VDRL/RPR nonreactive, Hep B negative, HIV-, GBS negative. PPD#3 - Was held overnight 2/2 3 episodes of incontinence and hypertension systolic to 150's. Incontinence has resolved, has urinated since with no episodes. - BP 133/91 today - Feels well today. Eating well, voiding well, ambulating well. - Pain well controlled with ibuprofen 600mg Q4H PRN. - well - Routine care - Anticipate discharge to [address] Eckert. (2) with maternal age 40 years or more in third trimester: Subjective <Arnel Nguyen MD - Last Filed: 09/15/18 06:42> Ambulation: ambulating normally Voiding: no voiding problems (incontinence yesterday 3x, none today) Passing Gas:: Yes Diet Tolerance:: regular diet Lochia:: Small Feeding Type:: breast feeding Current Pain Level(1-10): 0 Review of Systems Denies fever, chills, sweats Denies shortness of breath, difficulty breathing, chest pain, palpitations, chest pressure. Denies breast pain. Denies dysuria. Denies headache. Physical Exam <Arnel Nguyen MD - Last Filed: 09/15/18 06:42> Vital Signs (Past 24 Hours) Last Vital Signs Temp 37.5 C 09/14/18 23:30 Pulse 75 09/14/18 23:30 Resp 16 09/14/18 23:30 BP 133/91 09/15/18 05:15 Pulse Ox 98 09/14/18 23:30 General: Alert, oriented. No acute distress. Cardiac: Regular rate and rhythm, no murmurs/rubs/gallops. Respiratory: Clear to auscultation anterior and posteriorly, no wheezes/rales/ rhonchi. No increased work of breathing. Symmetrical chest rise. No respiratory distress. Abdomen: Soft, nontender, nondistended. Bowel sounds present. Uterus: Uterine fundus firm, palpable 2-3cm below umbilicus. Lower Extremities: No lower extremity edema or swelling. No deep calf pain. Zachary's negative bilaterally. <Nhi Singleton MD, FACOG - Last Filed: 09/15/18 06:47> Co-Signing Physician Notes Resident Physician Supervision Note: I interviewed and examined the patient. Discussed with Dr. Nguyen and agree with findings and plan as documented in the note. Any exceptions or clarifications are listed here: [None] Documented By: Nhi Singleton MD, FACOG Resident Activity Tracking <Arnel Nguyen MD - Last Filed: 09/15/18 06:42> Resident Involvement: Resident Care Provided Care Provided: Adult Hospital Medicine
[2018-09-15] MEDS: DOCUSATE SODIUM 100 MG CAP PO SCH (08:26)
[2018-09-15] MEDS: PRENATAL VITAMIN 1 TAB PO SCH (08:26)
== END 2018-09-15 12:37 | disposition home or self-care (01) | DRG 807 ==
LOC: 4S1 08:04 → 4S2 09-13 03:45
DX: O99.52 Diseases of the respiratory system complicating childbirth; Z83.438 Family history of other disorder of lipoprotein metabolism and other lipidemia; Z79.82 Long term (current) use of aspirin; O69.81X0 Labor and delivery complicated by cord around neck, without compression, not applicable or unspecified; Z83.3 Family history of diabetes mellitus; Z80.3 Family history of malignant neoplasm of breast; J45.909 Unspecified asthma, uncomplicated; O32.8XX0 Maternal care for other malpresentation of fetus, not applicable or unspecified; O09.523 Supervision of elderly multigravida, third trimester; Z80.0 Family history of malignant neoplasm of digestive organs; O16.5 Unspecified maternal hypertension, complicating the puerperium; R32 Unspecified urinary incontinence; Z82.49 Family history of ischemic heart disease and other diseases of the circulatory system; O09.893 Supervision of other high risk pregnancies, third trimester; O09.293 Supervision of pregnancy with other poor reproductive or obstetric history, third trimester; Z3A.40 40 weeks gestation of pregnancy; O90.89 Other complications of the puerperium, not elsewhere classified; Z37.0 Single live birth; Z82.79 Family history of other congenital malformations, deformations and chromosomal abnormalities; Z86.59 Personal history of other mental and behavioral disorders

== ENCOUNTER 2019-12-21 22:04 | Observation (INO) ==
[2019-12-21] MEDS ORDERED: ONDANSETRON INJ 2 MG/ML 2 ML VIAL IV STA (22:13)
[2019-12-21] MEDS ORDERED: MoRPHine SULFATE 4 MG/ML 1 ML CARP\\VIAL IV PRN (22:13)
[2019-12-21] MEDS ORDERED: SODIUM CHLORIDE 0.9% 1000ML 1,000 ML IV SCH (22:15)
--- NOTE | 2019-12-21 22:20 | Emergency Department Note ---
History of Present Illness General Chief complaint: Vaginal Bleeding Stated complaint: VAG BLEEDING Time Seen by Provider: 12/21/19 22:07 History of Present Illness This is a 39-year-old female presenting to the emergency department for evaluation of vaginal bleeding in the context of having a miscarriage. The patient was seen and evaluated in this department approximately 13 hours prior to this visitation. Her initial visit today she presented with identical complaints, ultimately undergoing evaluation including blood work and ultrasound. At her initial visit she was hypotensive, but this did improve with aggressive hydration. She was not with significant anemia, with a hemoglobin of 12. Ultrasound did show what appears to be a miscarriage. The patient case was reviewed with her TURB[employer] ENGINE ASSEMBLER group, and she was felt to be stable for discharge home with outpatient OB follow-up. The patient states that upon returning home she felt well for 6 or 7 hours. She was able to sleep and had minimal bleeding. Around 5 or 6 PM this evening, she began experiencing a return of bleeding. She is unsure how many pads she has soaked through because she used her supply. She states that she reverted to using some of her son's diapers to contain the bleeding. This did persist for an additional 3 to 4 hours, and the patient elected to call the on-call OB hotline, however she was not able to speak with anyone. The patient now presents to the ER feeling weak and lightheaded. She feels unsteady with movement. She is not having significant pain, but does have some lower abdominal cramping. She rates her current discomfort a 3/10. The patient does have a complicated TUR[employer] ENGINE ASSEMBLER history and this is not her first miscarriage. She has not had any this complicated in the past. She does not report a history of transfusion previously. No fevers or chills. She does arrive today via ambulance, and did receive Zofran for nausea. Home Medications Home Medications Medication Instructions Recorded Confirmed Type Vitamin 1 tab PO QAM 09/12/18 12/21/19 History buspirone 5 mg tablet 5 mg PO BID 12/01/19 12/21/19 History sertraline 100 mg tablet 100 mg PO QAM 12/01/19 12/21/19 History ferrous sulfate 325 mg PO DAILY #30 tab 12/22/19 Rx Allergies Allergy/AdvReac Type Severity Reaction Status Date / Time No Known Allergies Allergy Unverified 12/21/19 22:38 Past Med/Surg History Medical History (Updated 12/22/19 @ 22:03 by Bobby Paniagua PA-C) Asthma Depression with anxiety Encounter for anatomic survey demise 09/19/2013 14.3 weeks requiring d and e, MaterniT 21- 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 Gestational hypertension w/o significant proteinuria in 3rd trimester (Resolved) Mild preeclampsia (Resolved) Normal spontaneous vaginal delivery 01/28/15 37.3 weeks, female Polycystic ovarian disease Spontaneous 02/2014 6 weeks Spontaneous 04/24/2013 4 weeks Surgical History History of removal of neck cyst [place] teeth removed age 17 Social History Preferred Language: Maltese Communication Ability: Effective Visual Impairment: No Limitations Rivet Flunky Required: No Beliefs That Will Affect Care: None marital status: marital status details: Farhan (34) [phone] Current Living Situation: Family Current Living Situation Comment: lives with spouse, 2 children, 1 dog, 1 cat, spouse to change litter. current occupational status: employed current occupation: Teacher at [employer] Feels Safe at Home: Yes Safety Concerns: Feels Safe At This Time Smoking Status: Former smoker Tobacco Type: cigarettes ; Do You Dip or Chew Tobacco: No ; Second Hand Exposure: No ; Tobacco Cessation Education Requested by Patient: No Hx Alcohol Use: Yes Alcohol type: beer and wine Hx Substance Use: No Review of Systems A total of 10 systems reviewed and were otherwise negative Physical Exam Vital Signs Vital Signs - 24 hr 12/21/19 22:11 12/21/19 22:21 12/21/19 23:11 Temperature 37 C Temperature Source Oral Pulse Rate - Lying Pulse Rate - Sitting Pulse Rate - Standing Pulse Rate 62 Pulse Rate [Right] 61 Pulse Rhythm Regular Pulse Rhythm [Right] Regular Pulse Strength Normal Pulse Strength [Right] Normal Respiratory Rate 16 16 Respiratory Effort / Characteristics Non-Labored Spontaneous Non-Labored Spontaneous Respiratory Depth Normal Normal Blood Pressure - Lying Blood Pressure - Sitting Blood Pressure- Standing Blood Pressure 104/61 Blood Pressure [Right Arm] 105/69 Blood Pressure Mean 75 Blood Pressure Mean [Right Arm] 81 Blood Pressure Position Lying Blood Pressure Position [Right Arm] Pulse Oximetry 98 98 98 Oxygen Delivery Method Room Air Room Air Room Air Sepsis Recent Fever Within 48 Hours No Sepsis New/Unexplained Change in Mental Status No Sepsis Action Taken by Nursing No Action Required 12/22/19 00:00 12/22/19 01:33 12/22/19 02:00 Temperature Temperature Source Pulse Rate - Lying 80 Pulse Rate - Sitting 90 Pulse Rate - Standing 92 H Pulse Rate Pulse Rate [Right] 73 78 Pulse Rhythm Pulse Rhythm [Right] Regular Pulse Strength Pulse Strength [Right] Normal Respiratory Rate 20 20 Respiratory Effort / Characteristics Respiratory Depth Normal Normal Blood Pressure - Lying 103/65 Blood Pressure - Sitting 103/71 Blood Pressure- Standing 99/71 L Blood Pressure Blood Pressure [Right Arm] 108/67 102/73 Blood Pressure Mean Blood Pressure Mean [Right Arm] 80 82 Blood Pressure Position Blood Pressure Position [Right Arm] Lying Lying Pulse Oximetry 96 100 Oxygen Delivery Method Room Air Room Air Sepsis Recent Fever Within 48 Hours Sepsis New/Unexplained Change in Mental Status Sepsis Action Taken by Nursing VITALS: Vitals are noted on the nurse's note and reviewed by myself. Vital signs with intermittent hypotension GENERAL: Well-developed, well-nourished, white female who appears mildly pale. She is cooperative HEAD: Normocephalic atraumatic. NECK: Supple without nuchal rigidity. No lymphadenopathy. No thyromegaly. Cervical spine is nontender. HEART: Regular rate and rhythm without murmurs gallops or rubs. LUNGS: Clear to auscultation bilaterally without wheezes, rales or rhonchi. No retractions or accessory muscle use. ABDOMEN: Positive normal bowel sounds x 4. Soft, nontender, without masses or organomegaly. No guarding or rebound tenderness. MUSCULOSKELETAL: No muscle atrophy, erythema, or edema noted. Full range of motion in all extremities. NEURO: Patient was alert and oriented to person place and time. CN II through XII grossly intact. Course Administered Medications Discontinued Medications Acetaminophen (Tylenol) 650 mg PO NOW STA Stop: 12/22/19 01:59 Last Admin: 12/22/19 02:21 Dose: 650 mg Documented by: [id number] Buspirone HCl (Buspar) 5 mg PO BID DIANA Stop: 01/21/20 08:59 Last Admin: 12/22/19 09:07 Dose: 5 mg Documented by: [id number] Diphenhydramine HCl (Benadryl) 25 mg IV NOW STA Stop: 12/22/19 01:59 Last Admin: 12/22/19 02:20 Dose: 25 mg Documented by: [id number] Sodium Chloride (Nss 1000ml) 1,000 mls @ 999 mls/hr IV .Q1H1M DIANA Stop: 12/21/19 23:15 Last Infusion: 12/22/19 02:04 Dose: 0 mls/hr Documented by: [id number] Admin: 12/21/19 22:24 Dose: 999 mls/hr Documented by: [id number] Sodium Chloride (Nss 1000ml) 1,000 mls @ 999 mls/hr IV .Q1H1M STA Stop: 12/22/19 01:12 Last Infusion: 12/22/19 02:04 Dose: 0 mls/hr Documented by: [id number] Admin: 12/22/19 00:14 Dose: 999 mls/hr Documented by: [id number] Sodium Chloride (Nss 1000ml) 1,000 mls @ 200 mls/hr IV .Q5H DIANA Stop: 01/21/20 03:44 Last Infusion: 12/22/19 13:36 Dose: 0 mls/hr Documented by: [id number] Admin: 12/22/19 11:58 Dose: 200 mls/hr Documented by: [id number] Infusion: 12/22/19 11:58 Dose: 200 mls/hr Documented by: [id number] Infusion: 12/22/19 09:30 Dose: 200 mls/hr Documented by: [id number] Infusion: 12/22/19 07:10 Dose: 0 mls/hr Documented by: [id number] Infusion: 12/22/19 06:28 Dose: 200 mls/hr Documented by: [id number] Admin: 12/22/19 04:45 Dose: 200 mls/hr Documented by: [id number] Ondansetron HCl (Zofran) 4 mg IV NOW STA Stop: 12/21/19 22:14 Last Admin: 12/21/19 22:24 Dose: 4 mg Documented by: [id number] Prenat Multivit/[place]/Iron/Folic Ac ( Vitamin) [facility] [place]: 01/21/20 08:59 Last Admin: 12/22/19 09:06 Dose: 1 tab Documented by: [id number] Sertraline HCl (Zoloft) [facility] [place] Stop: 01/21/20 08:59 Last Admin: 12/22/19 09:06 Dose: 100 mg Documented by: [id number] Critical Care Time I have personally spent greater than 42 minutes of critical care time in the direct management of this patient. This includes bedside care, interpretation of diagnostic studies, and testing, discussion with consultants, patient, and family members, and other required patient management activities. This 42 minutes is in excess of all separately billable procedures. Medical Decision Making Differential Diagnosis The patient's history was concerning for vaginal bleeding. Differential diagnosis: Etiologies such as ectopic , dysfunction uterine bleeding, pelvic mass, fibroid, coagulopathy, anemia, trauma, infection, as well as others were entertained. Laboratory Data Result diagrams: 12/22/19 12:00 12/21/19 22:33 Lab Results 12/21/19 12/21/19 12/21/19 Range/Units 22:33 22:33 22:33 WBC 14.56 H (4.8-10.8) K/uL RBC 2.92 L (4.2-5.4) M/uL Hgb 9.0 L D (12.0-16.0) g/dL Hct 26.1 L (37-47) % MCV 89.4 (80-100) fL MCH 30.8 (25-34) pg MCHC 34.5 (32-36) g/dL RDW Std Deviation 39.3 (36.4-46.3) fL RDW Coeff of Ajay 12.1 (11.5-14.5) % Plt Count 237 (130-400) K/uL MPV 9.3 (7.4-10.4) fL Immature Gran % (Auto) 0.2 % Neut % (Auto) 80.1 % Lymph % (Auto) 14.6 % [place] % (Auto) 4.3 % Eos % (Auto) 0.6 % Baso % (Auto) 0.2 % Immature Gran # (Auto) 0.03 H (0.00-0.02) K/uL Neut # (Auto) 11.65 H (1.4-6.5) K/uL Lymph # (Auto) 2.13 (1.2-3.4) K/uL [place] # (Auto) 0.63 H (0.11-0.59) K/uL Eos # (Auto) 0.09 (0-0.5) K/uL Baso # (Auto) 0.03 (0-0.2) K/uL RBC Morphology PT 10.5 (9.0-12.0) Seconds INR 1.0 (0.9-1.1) APTT 21.8 (21.0-31.0) Seconds PTT Ratio 0.8 Sodium (136-145) mmol/L Potassium (3.5-5.1) mmol/L Chloride (98-107) mmol/L Carbon Dioxide (21-32) mmol/L Anion Gap (3-11) BUN (7-18) mg/dl Creatinine (0.6-1.2) mg/dl Est Cr Clr Drug Dosing ml/min Est GFR ( Amer) Est GFR (Non-Af Amer) BUN/Creatinine Ratio (10-20) Glucose (70-99) mg/dl Calcium (8.5-10.1) mg/dl Total Bilirubin (0.2-1) mg/dl AST (15-37) U/L ALT (12-78) U/L Alkaline Phosphatase (45-117) U/L Total Protein (6.4-8.2) gm/dl Albumin (3.4-5.0) gm/dl Globulin (2.5-4.0) gm/dl Albumin/Globulin Ratio (0.9-2) HCG, Quant mIU/ml Blood Type B Positive Antibody Screen NEGATIVE Crossmatch See Detail 12/21/19 12/21/19 12/22/19 Range/Units 22:33 22:33 01:28 WBC 9.90 (4.8-10.8) K/uL RBC 2.14 L (4.2-5.4) M/uL Hgb 6.5 L* (12.0-16.0) g/dL Hct 19.0 L* (37-47) % MCV 88.8 (80-100) fL MCH 30.4 (25-34) pg MCHC 34.2 (32-36) g/dL RDW Std Deviation 39.5 (36.4-46.3) fL RDW Coeff of Ajay 12.1 (11.5-14.5) % Plt Count 167 (130-400) K/uL MPV 9.6 (7.4-10.4) fL Immature Gran % (Auto) 0.2 % Neut % (Auto) 85.3 % Lymph % (Auto) 11.7 % [place] % (Auto) 2.5 % Eos % (Auto) 0.2 % Baso % (Auto) 0.1 % Immature Gran # (Auto) 0.02 (0.00-0.02) K/uL Neut # (Auto) 8.44 H (1.4-6.5) K/uL Lymph # (Auto) 1.16 L (1.2-3.4) K/uL [place] # (Auto) 0.25 (0.11-0.59) K/uL Eos # (Auto) 0.02 (0-0.5) K/uL Baso # (Auto) 0.01 (0-0.2) K/uL RBC Morphology Unremarkable PT (9.0-12.0) Seconds INR (0.9-1.1) APTT (21.0-31.0) Seconds PTT Ratio Sodium 137 (136-145) mmol/L Potassium 3.6 (3.5-5.1) mmol/L Chloride 108 H (98-107) mmol/L Carbon Dioxide 21 (21-32) mmol/L Anion Gap 8.0 (3-11) BUN 11 (7-18) mg/dl Creatinine 0.66 (0.6-1.2) mg/dl Est Cr Clr Drug Dosing 96.9 ml/min Est GFR ( Amer) 127.2 Est GFR (Non-Af Amer) 109.7 BUN/Creatinine Ratio 16.3 (10-20) Glucose 128 H (70-99) mg/dl Calcium 7.7 L (8.5-10.1) mg/dl Total Bilirubin < 0.1 L (0.2-1) mg/dl AST 6 L (15-37) U/L ALT 14 (12-78) U/L Alkaline Phosphatase 52 (45-117) U/L Total Protein 5.9 L (6.4-8.2) gm/dl Albumin 3.0 L (3.4-5.0) gm/dl Globulin 2.9 (2.5-4.0) gm/dl Albumin/Globulin Ratio 1.0 (0.9-2) HCG, Quant 5069 mIU/ml Blood Type Antibody Screen Crossmatch Imaging Data Radiologist's Impression: PELVIC ULTRASOUND CLINICAL HISTORY: Vaginal bleed. Miscarriage. COMPARISON STUDY: ultrasound December 04, 2019. TECHNIQUE: Transabdominal sonography of the pelvis was performed. FINDINGS: Uterus measures 10.8 x 5.1 x 7 cm. Note is made of a large echogenic focus within the vagina that measures 7.2 x 6.5 x 7.6 cm. This contains no color flow. The endometrium is thickened, measuring 1.7 cm in thickness. Note is made of a 2.5 x 1.4 cm hypoechoic focus within the anterior endometrium that has color flow. The right ovary was normal, measuring 2.2 x 1.5 x 1.4 cm. The left ovary is not visualized. There was no adnexal mass. IMPRESSION: 1. Large blood clot within the vagina that measures 7.2 x 6.5 x 7.6 cm. 2. Thickened heterogeneous and hypervascular endometrium which raises the possibility of retained products of conception. 3. Nonvisualization of the left ovary. MDM Narrative Physical exam and history were performed. Nursing notes, EMR, and Medication List were personally reviewed. Patient appears to have persistent vaginal bleeding in the context of having a miscarriage. She was seen earlier today and had an initial hemoglobin of 12.0. She continues to report large amounts of heavy bleeding. She has some intermittent hypotension here in the ER. IV access was established and labs were obtained. She was hydrated with normal saline. Blood bank was gathered. The patient was sent rapidly to ultrasound to further evaluate her symptoms. The case was discussed with my attending physician. The patient's blood work is as above and was reviewed. She has dropped from a hemoglobin of 12.0 to 9.0. Her white blood cell count has increased from 9.3 to 14.5. Transaminases are not diagnostic. Ultrasound is as above and was reviewed by myself and radiology. She has large clot material in the vaginal vault, and there is concern for possible retained products of conception. Due to her bleeding and increased anemia I did discuss the case with on-call TURBINE ENGINE ASSEMBLER, Dr. Wilkins, who was kind enough to evaluate the patient here in the ER. Dr. Wilkins did perform pelvic exam, and removed large clot product from the vaginal vault. He did gather possible products of conception and sent these to the lab. Please see his dictation for more specifics on this. After evaluation by TURBINE ENGINE ASSEMBLER the plan was to continue and hydrate the patient with saline. She was given lactated Ringer's with Pitocin to help with the bleeding. Pending fluid replacement we will reevaluate the patient and repeat CBC. The patient continued with mild bleeding, however this did significantly let up within an hour. We did transfuse the patient her fluids, and while she was able to stand, she continued to feel unsteady, and ambulatory trial was not pursued. Repeat CBC now showed a much more significant anemia, with a hemoglobin of 6.5. Thankfully her bleeding has slowed, however and transfusion was felt to be necessary. Transfusion consent was performed by Dr. Jack, and we did begin to transfuse the patient 1 unit here in the ER. Due to the patient's intermittent hypotension, acute anemia from blood loss, and need for transfusion and monitoring we did contact TURBINE ENGINE ASSEMBLER again. Dr. Wilkins will place the patient in the hospital for ongoing care. At this time she does not appear to need OR intervention. The patient was kept up to speed on all of her findings and was pleased with this plan. Please see the specialist dictations for further patient course, plan, and disposition. The chart was completed utilizing [employer] Speech Voice Recognition Software. Grammatical errors, random word insertions, pronoun errors, and incomplete sentences are an occasional consequence of this system due to software limitations, ambient noise, and hardware issues. Any formal questions or concerns about the content, text, or information contained within the body of this dictation should be directly addressed to the provider for clarification. . Impression & Plan Acute blood loss anemia, Miscarriage, Vaginal bleeding Discharge Plan Visit Data *Final* Discharge Date/Time: 12/22/19 03:13 Chief Complaint: Vaginal Bleeding Stated Complaint: VAG BLEEDING ED Provider: Jose Orellana ED Midlevel Provider: Bobby Paniagua Discharge Problem: Acute blood loss anemia, Miscarriage, Vaginal bleeding Patient Disposition: Admitted As Inpatient Discharge Instructions Interventions: ED Discharge Assessment Last Done: 12/22/19 03:13
[2019-12-21 22:54] LABS: Basophils # (auto) 0.03 K/uL (0-0.2); Basophils % (auto) 0.2 %; Eosinophils # (auto) 0.09 K/uL (0-0.5); Eosinophils % (auto) 0.6 %; Hematocrit (blood only) 26.1 % (37-47); Immature Granulocytes # (auto) 0.03 K/uL (0.00-0.02); Immature Granulocytes % (auto) 0.2 %; Lymphocytes # (auto) 2.13 K/uL (1.2-3.4); Lymphocytes % (auto) 14.6 %; Mean Corpuscular Hemoglobin 30.8 pg (25-34); Mean Corpuscular Hgb Conc 34.5 g/dL (32-36); Mean Corpuscular Volume 89.4 fL (80-100); Mean Platelet Volume 9.3 fL (7.4-10.4); Monocytes # (auto) 0.63 K/uL (0.11-0.59); Monocytes % (auto) 4.3 %; Neutrophils # (auto) 11.65 K/uL (1.4-6.5); Neutrophils % (auto) 80.1 %; Platelet Count 237 K/uL (130-400); RDW Coefficient of Variation 12.1 % (11.5-14.5); RDW Standard Deviation 39.3 fL (36.4-46.3); Red Blood Count 2.92 M/uL (4.2-5.4); White Blood Count 14.56 K/uL (4.8-10.8)
[2019-12-21 22:55] LABS: Partial Thromboplastin Ratio 0.8; Partial Thromboplastin Time 21.8 Seconds (21.0-31.0); Prothrombin Time 10.5 Seconds (9.0-12.0)
[2019-12-21 23:01] LABS: Alanine Aminotransferase 14 U/L (12-78); Aspartate Aminotransferase 6 U/L (15-37); BUN Creatinine Ratio 16.3 (10-20); Blood Urea Nitrogen 11 mg/dl (7-18); Calcium 7.7 mg/dl (8.5-10.1); Carbon Dioxide 21 mmol/L (21-32); Chloride 108 mmol/L (98-107); Creatinine Clr Calc Pharmacy 96.9 ml/min; Est GFR (African American) 127.2; Est GFR (Non-African American) 109.7; Glucose 128 mg/dl (70-99); Potassium 3.6 mmol/L (3.5-5.1); Sodium 137 mmol/L (136-145)
[2019-12-21 23:04] LABS: Alkaline Phosphatase 52 U/L (45-117); Bilirubin,Total < 0.1 mg/dl (0.2-1); Globulin 2.9 gm/dl (2.5-4.0); Total Protein 5.9 gm/dl (6.4-8.2)
[2019-12-22] MEDS ORDERED: SODIUM CHLORIDE 0.9% 1000ML 1,000 ML IV STA (00:12)
[2019-12-22] MEDS ORDERED: OXYTOCIN 40 UNITS in LACTATED RINGER'S 1,000 ML IV SCH (00:15)
--- NOTE | 2019-12-22 00:43 | OB/GYN Consultation ---
Date of Consultation December 22, 2019 Assessment & Plan (1) Miscarriage: -Suspect remaining products of conception removed with pelvic examination and sent for pathological evaluation -Repeat examination after evacuation of uterine contacts show a firm uterus -Bleeding appropriate (2) Acute hypotension: -Patient aggressively hydrated with normal saline and lactated Ringer' -Hemodynamically stable after fluid resuscitation -We will repeat blood count in 1 to 2 hours, suspect market anemia and anticipate a hemoglobin between 7 and 8 -If patient is orthostatic at that time, will probably need blood transfusion, would recommend 2 units -If patient is not orthostatic, she can be discharged home to follow-up in the office -Risk benefits and alternatives to the blood transfusion have been discussed -Discussed the case with Bobby Paniagua PA-C -Signed out care to Mr. Paniagua -Provider needs to return to labor and delivery for section History of Present Illness Reason for Consultation: Vaginal bleeding, incomplete AB Requesting Physician: Bobby Paniagua PA-C History of Present Illness The patient is a 39-year-old 6 para 2 who presents to the emergency room with active bleeding and no N nonviable . The patient had been seen previously in the emergency room 18 hours for vaginal bleeding. At that time she had an ultrasound which showed no intrauterine . The patient was hemodynamically stable and was discharged home for outpatient follow-up. Cory landa states that later this evening she began to bleed heavily with the passages of clots and presented to the emergency room for evaluation. The patient was noted to be hypotensive in gynecological consultation was obtained Allergies Allergy/AdvReac Type Severity Reaction Status Date / Time No Known Allergies Allergy Unverified 12/21/19 22:38 Home Medications Home Medications Medication Instructions Recorded Confirmed Type Vitamin 1 tab PO QAM 09/12/18 12/21/19 History buspirone 5 mg tablet 5 mg PO BID 12/01/19 12/21/19 History sertraline 100 mg tablet 100 mg PO QAM 12/01/19 12/21/19 History Patient History Medical History Asthma Depression with anxiety demise 09/19/2013 14.3 weeks requiring d and e, MaterniT 21- 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 Gestational hypertension w/o significant proteinuria in 3rd trimester (Resolved) Mild preeclampsia (Resolved) Normal spontaneous vaginal delivery 01/28/15 37.3 weeks, female Polycystic ovarian disease Spontaneous 02/2014 6 weeks Spontaneous 04/24/2013 4 weeks Surgical History History of removal of neck cyst [place] teeth removed age 17 Social History Preferred Language: Armenian Communication Ability: Effective Visual Impairment: No Limitations Beliefs That Will Affect Care: None marital status: marital status details: Farhan (34) [phone] Current Living Situation: Family Current Living Situation Comment: lives with spouse, 2 children, 1 dog, 1 cat, spouse to change litter. current occupational status: employed current occupation: Teacher at [employer] Feels Safe at Home: Yes Smoking Status: Never smoker Hx Alcohol Use: No Hx Substance Use: No Physical Exam Constitutional: Alert, but pale Gastrointestinal (Abdomen): normal bowel sounds, soft, nontender, no hepatosplenomegaly Genitourinary: Speculum placed in vagina. 200 cc of clotted and non-clotted blood evacuated from the vaginal vault gestational tissue in the cervical loss which is dilated is removed and sent for pathological evaluation. Bimanual examination shows an anterior firm uterus Results & Data Vital Signs (Past 12 Hours) Vital Signs Temp Pulse Pulse Resp BP BP Pulse Ox 12/22/19 00:00 73 20 108/67 96 12/21/19 23:11 61 16 105/69 98 12/21/19 22:21 98 12/21/19 22:11 98.6 F 62 16 104/61 98 PG Care Time/CCT Total # of Minutes Spent Total Time Spent with Patient: Total time spent is greater than 50% in coordination of care (as documented) at patient's floor/unit and/or counseling patient: Coding Level of Care Code 51438 Office/OBS Consult Lvl 4 Diagnoses Miscarriage O03.9 Acute hypotension I95.9 CPT Codes Endometrial Biopsy - 62599 ([id number])
[2019-12-22 01:45] LABS: Hemoglobin 6.5 g/dL (12.0-16.0); Mean Corpuscular Hemoglobin 30.4 pg (25-34); Mean Corpuscular Hgb Conc 34.2 g/dL (32-36); Mean Corpuscular Volume 88.8 fL (80-100); Mean Platelet Volume 9.6 fL (7.4-10.4); Platelet Count 167 K/uL (130-400); RDW Coefficient of Variation 12.1 % (11.5-14.5); RDW Standard Deviation 39.5 fL (36.4-46.3); Red Blood Count 2.14 M/uL (4.2-5.4)
[2019-12-22 01:56] LABS: Basophils # (auto) 0.01 K/uL (0-0.2); Basophils % (auto) 0.1 %; Eosinophils # (auto) 0.02 K/uL (0-0.5); Eosinophils % (auto) 0.2 %; Immature Granulocytes # (auto) 0.02 K/uL (0.00-0.02); Immature Granulocytes % (auto) 0.2 %; Lymphocytes # (auto) 1.16 K/uL (1.2-3.4); Lymphocytes % (auto) 11.7 %; Monocytes # (auto) 0.25 K/uL (0.11-0.59); Monocytes % (auto) 2.5 %; Neutrophils # (auto) 8.44 K/uL (1.4-6.5); Neutrophils % (auto) 85.3 %; RBC Morphology Unremarkable
[2019-12-22] MEDS ORDERED: ACETAMINOPHEN 325 MG TAB PO STA (01:58)
[2019-12-22] MEDS ORDERED: SODIUM CHLORIDE 0.9% 250 ML IV PRN ×3 (01:58→05:49)
[2019-12-22] MEDS ORDERED: DiphenhydrAMINE HCL 50 MG/ML VIAL IV STA (01:58)
[2019-12-22] MEDS: SODIUM CHLORIDE 0.9% 1000ML 1,000 ML IV SCH ×2 (04:45→11:58)
--- NOTE | 2019-12-22 07:06 | Gynecologic Progress Note ---
Date of Service December 22, 2019 Assessment & Plan (1) Anemia due to blood loss: - patient was severe anemia after the miscarriage - patient with orthostatic changes - ER unable to perform transfusion - patient in processes of x-fusion of 2 units PRBC's - first unit hung in ER - consent missing from chart - Blood bank will not hang 2nd unit without consent - consent re-signed Admission and Anticipated Discharge Date Admission Date: December 22, 2019 Subjective bleeding light Results & Data ([facility]) Vital Signs (Past 12 Hours) Vital Signs Temp Pulse Pulse Resp BP BP Pulse Ox 12/22/19 04:28 98.2 F 77 99/68 L 16 L 12/22/19 03:45 99.3 F 71 16 102/68 100 12/22/19 03:30 99.3 F 71 16 102/68 100 12/22/19 03:13 74 16 104/68 96 12/22/19 02:58 98.4 F 75 17 104/68 99 12/22/19 02:43 98.6 F 70 17 96/64 L 100 12/22/19 02:26 98.4 F 75 18 103/72 100 12/22/19 02:00 78 20 102/73 100 12/22/19 00:00 73 20 108/67 96 12/21/19 23:11 61 16 105/69 98 12/21/19 22:21 98 12/21/19 22:11 98.6 F 62 16 104/61 98 PG Care Time/CCT Total # of Minutes Spent Total Time Spent with Patient: Total time spent is greater than 50% in coordination of care (as documented) at patient's floor/unit and/or counseling patient: Coding Level of Care Code None Diagnoses Anemia due to blood loss D50.0
--- NOTE | 2019-12-22 07:28 | Ultrasound Report ---
PELVIC ULTRASOUND CLINICAL HISTORY: Vaginal bleed. Miscarriage. COMPARISON STUDY: ultrasound December 04, 2019. TECHNIQUE: Transabdominal sonography of the pelvis was performed. FINDINGS: Uterus measures 10.8 x 5.1 x 7 cm. Note is made of a large echogenic focus within the vagin a that measures 7.2 x 6.5 x 7.6 cm. This contains no color flow. The endometrium is thickened, measur ing 1.7 cm in thickness. Note is made of a 2.5 x 1.4 cm hypoechoic focus within the anterior endometr ium that has color flow. The right ovary was normal, measuring 2.2 x 1.5 x 1.4 cm. The left ovary is not visualized. There was no adnexal mass. IMPRESSION: 1. Large blood clot within the vagina that measures 7.2 x 6.5 x 7.6 cm. 2. Thickened heterogeneous and hypervascular endometrium which raises the possibility of retained pro ducts of conception. 3. Nonvisualization of the left ovary. ACT 112: Negative or not required by law. Electronically signed by: Franki Chiang M.D. 12/22/2019 7:27 AM
[2019-12-22] MEDS ORDERED: SERTRALINE HCL 100 MG TABLET PO SCH (09:00)
[2019-12-22] MEDS ORDERED: PRENATAL VITAMIN 1 TAB PO SCH (09:00)
[2019-12-22 12:20] LABS: Basophils # (auto) 0.02 K/uL (0-0.2); Basophils % (auto) 0.2 %; Eosinophils # (auto) 0.08 K/uL (0-0.5); Eosinophils % (auto) 0.7 %; Hematocrit (blood only) 26.6 % (37-47); Hemoglobin 9.2 g/dL (12.0-16.0); Immature Granulocytes # (auto) 0.01 K/uL (0.00-0.02); Immature Granulocytes % (auto) 0.1 %; Lymphocytes # (auto) 2.64 K/uL (1.2-3.4); Lymphocytes % (auto) 22.5 %; Mean Corpuscular Hemoglobin 30.7 pg (25-34); Mean Corpuscular Volume 88.7 fL (80-100); Mean Platelet Volume 9.3 fL (7.4-10.4); Monocytes # (auto) 1.14 K/uL (0.11-0.59); Monocytes % (auto) 9.7 %; Neutrophils # (auto) 7.83 K/uL (1.4-6.5); Neutrophils % (auto) 66.8 %; Platelet Count 172 K/uL (130-400); RDW Coefficient of Variation 13.1 % (11.5-14.5); RDW Standard Deviation 42.7 fL (36.4-46.3); White Blood Count 11.72 K/uL (4.8-10.8)
[2019-12-22 12:32] LABS: Mean Corpuscular Hgb Conc 34.6 g/dL (32-36)
--- NOTE | 2019-12-22 12:55 | Gynecologic Progress Note ---
Date of Service December 22, 2019 Assessment & Plan (1) Anemia due to blood loss: Her hgb in improved to 9. she feels ready for d/c. Instructions reviewed. To call with any concerns. Admission and Anticipated Discharge Date Admission Date: December 22, 2019 Subjective Feeling much better. Minimal bleeding. Tolerated diet without n/v. Review of Systems Review of Systems: All systems reviewed & are unremarkable except as noted in HPI & below Physical Exam Constitutional: WD/WN, vitals as above Psychiatric: A+Ox3, euthymic affect Results & Data ([facility]) Vital Signs (Past 12 Hours) Vital Signs Temp Pulse Pulse Resp BP BP Pulse Ox 12/22/19 11:45 36.8 C 84 18 108/68 100 12/22/19 08:50 37 C 71 16 110/71 100 12/22/19 08:10 37.2 C 73 16 114/75 98 12/22/19 07:40 37 C 71 71 16 113/69 113/69 99 12/22/19 07:11 37 C 73 18 104/69 99 12/22/19 04:45 36.7 C 68 18 99/62 L 99 12/22/19 04:28 36.8 C 77 99/68 L 16 L 12/22/19 03:45 37.4 C 71 16 102/68 100 12/22/19 03:30 37.4 C 71 16 102/68 100 12/22/19 03:13 74 16 104/68 96 12/22/19 02:58 36.9 C 75 17 104/68 99 12/22/19 02:43 37.0 C 70 17 96/64 L 100 12/22/19 02:26 36.9 C 75 18 103/72 100 12/22/19 02:00 78 20 102/73 100 PG Care Time/CCT Total # of Minutes Spent Total Time Spent with Patient: Total time spent is greater than 50% in coordination of care (as documented) at patient's floor/unit and/or counseling patient: Coding Level of Care Code 18563 Subseq Hosp Care Lvl 1 Diagnoses Anemia due to blood loss D50.0
--- NOTE | 2019-12-24 09:05 | Discharge Summary ---
Date of Service December 24, 2019 Admission HPI Per Admitting Provider The patient is a 39-year-old 6 para 2 who presents to the emergency room with active bleeding and no N nonviable . The patient had been seen previously in the emergency room 18 hours for vaginal bleeding. At that time she had an ultrasound which showed no intrauterine . The patient was hemodynamically stable and was discharged home for outpatient follow-up. Patient states that later this evening she began to bleed heavily with the passages of clots and presented to the emergency room for evaluation. The patient was noted to be hypotensive in gynecological consultation was obtained Admission Exam (Per Admitting) Constitutional Pale, responsive, BP 75/40 Respiratory normal respiratory effort, lungs clear to auscultation Cardiovascular Rate/Rhythm: + tachycardic Gastrointestinal (Abdomen) normal bowel sounds, soft, nontender, no hepatosplenomegaly Genitourinary Speculum placed in vagina. 200 cc of clotted and non-clotted blood evacuated from the vaginal vault gestational tissue in the cervical loss which is dilated is removed and sent for pathological evaluation. Bimanual examination shows an anterior firm uterus Discharge Data Consultations 12/22/19 02:14 ED Decision to Admit Stat Hospital Course (1) Miscarriage: - tissue removed in the ER and sent for pathological dx - Path report pending at the time of d/c (2) Acute blood loss anemia: - Hgb 2 hrs after consultation 6.2 - pt lightheaded with ambulation - ER unable to transfuse patient in ER - pt was placed into observation and sent to the floor - patient received 2U PRBC's - post x-fusion Hgb 9.2 - patient not symptomatic - bleeding was stable - d/c home to f/u in 6 weeks Coding Level of Care Code Admit/DC Same Day >8hr Level 3 Diagnoses Miscarriage O03.9 Acute blood loss anemia D62
== END 2019-12-22 13:45 | disposition home or self-care (01) ==
LOC: ED 22:04 → 4S2 22:04